=== PATIENT | male | born 1995 | race Caucasian/White ===

== ENCOUNTER 2017-12-31 12:46 | Inpatient (IN) | payer OTHER ==
[~2017-12-31] VITALS: Ht 167.6 cm; Wt 86.2 kg
[2017-12-31] MEDS ORDERED: CYCLOBENZAPRINE10 MG ORAL (12:55)
[2017-12-31] MEDS ORDERED: NEURONTIN300 MG ORAL (12:55)
[2017-12-31] MEDS ORDERED: Ketorolac 30mg Inj IV ONE (13:15)
[2017-12-31] MEDS ORDERED: Morphine Sulfate 4mg/ml Inj (IV USE ONLY) IVP ONE (13:15)
[2017-12-31 13:20] VITALS: BP 167/84
[2017-12-31 13:37] LABS: ANION GAP 10 mmol/L (5-15); BLOOD UREA NITROGEN 12 mg/dL (7-18); CALCIUM 9.5 MG/DL (8.5-10.1); CARBON DIOXIDE 28 MMOL/L (21-32); CHLORIDE 97 MMOL/L (98-107); CREATININE 0.8 MG/DL (0.55-1.30); POTASSIUM 4.7 MMOL/L (3.5-5.1); SODIUM 135 MMOL/L (136-145)
[2017-12-31 13:40] LABS: BASOPHILS % (AUTO) 1.1 % (0.0-2.0); EOSINOPHILS % (AUTO) 1.3 % (0.0-3.0); HEMATOCRIT 46.2 % (42.0-52.0); HEMOGLOBIN 15.6 G/DL (14.2-18.0); LYMPHOCYTES % (AUTO) 25.8 % (20.0-45.0); MEAN CORPUSCULAR VOLUME 82 FL (80-99); MONOCYTES % (AUTO) 6.3 % (1.0-10.0); NEUTROPHILS % (AUTO) 65.5 % (45.0-75.0); PLATELET COUNT 126 K/UL (150-450); RED BLOOD COUNT 5.64 M/UL (4.70-6.10); RED CELL DISTRIBUTION WIDTH 11.2 % (11.6-14.8)
[2017-12-31 13:49] LABS: ALANINE AMINOTRANSFERASE 138 U/L (12-78); ALBUMIN 4.1 G/DL (3.4-5.0); ALBUMIN/GLOBULIN RATIO 0.7 (1.0-2.7); ALKALINE PHOSPHATASE 101 U/L (46-116); ASPARTATE AMINO TRANSFERASE 78 U/L (15-37); BILIRUBIN,TOTAL 0.5 MG/DL (0.2-1.0)
[2017-12-31] MEDS ORDERED: HYDROmorphone 1mg/ml Carpuject IVP ONE (14:00)
--- NOTE | 2017-12-31 14:26 | Emergency Room Report ---
History of Present Illness General Chief Complaint: Pain Source: Patient Present Illness HPI 22-year-old male presents ED complaining of right knee pain and swelling. Started approximate 5 days ago. Denies any recent injury or fall. Febrile in triage. Knee is swollen, unable to flex or extend. Unable to bear weight. States history of IV drug use. Denies cough or sore throat. No other aggravating or relieving factors. Denies any other associated symptoms Allergies: Coded Allergies: NALOXONE (Verified Allergy, Unknown, 12/31/17) Patient History Past Medical History: none Past Surgical History: none Pertinent Family History: none Social History: Reports: drug use; Denies: smoking, alcohol use Immunizations: UTD Reviewed Nursing Documentation: PMH: Agreed; PSxH: Agreed Review of Systems All Other Systems: negative except mentioned in HPI Physical Exam Vital Signs Date Time Temp Pulse Resp B/P (MAP) Pulse Ox O2 Delivery O2 Flow Rate FiO2 12/31/17 12:49 101.1 150 26 167/84 97 Room Air 101.1 Sp02 EP Interpretation: reviewed, normal General Appearance: alert, GCS 15, non-toxic, moderate distress Head: normocephalic, atraumatic Eyes: bilateral eye normal inspection, bilateral eye PERRL ENT: hearing grossly normal, normal pharynx, no angioedema, normal voice Neck: full range of motion, supple/symm/no masses Respiratory: chest non-tender, lungs clear, normal breath sounds, speaking full sentences Cardiovascular #1: regular rate, rhythm, no edema Cardiovascular #2: 2+ carotid (R), 2+ carotid (L), 2+ radial (R), 2+ radial (L) , 2+ dorsalis pedis (R), 2+ dorsalis pedis (L) Gastrointestinal: normal bowel sounds, non tender, soft, non-distended, no guarding, no rebound Rectal: deferred Genitourinary: normal inspection, no CVA tenderness Musculoskeletal: back normal, gait/station normal, decreased range of motion, swelling - R knee Neurologic: alert, oriented x3, responsive, motor strength/tone normal, sensory intact, speech normal Psychiatric: judgement/insight normal, memory normal, mood/affect normal, no suicidal/homicidal ideation Reflexes: 3+ bicep (R), 3+ bicep (L), 3+ tricep (R), 3+ tricep (L), 3+ knee (R) , 3+ knee (L) Skin: warm/dry, well hydrated Lymphatic: no adenopathy Procedures Additional Procedure Procedure Narrative Patient placed in supine position. Padding placed underneath right knee to achieve adequate flexion. Consents signed. Knee is cleaned and prepped with Betadine. Using 18-gauge needle introduced into the parapatellar region laterally. I was able to withdraw cloudy/serosanguineous fluid. Multiple syringes were filled. Patient tolerated procedure without difficulty Medical Decision Making Diagnostic Impression: Primary Impression: Knee pain Qualified Codes: M25.561 - Pain in right knee Additional Impressions: IV drug user Sepsis Qualified Codes: A41.9 - Sepsis, unspecified organism ER Course Hospital Course 22-year-old female presents to ED with swelling, pain R knee with fever Differential diagnoses include: Cellulitis, septic joint, gout Clinical course Patient placed on stretcher. After initial history and physical I ordered labs , blood Cx, UA, IVFs, pain meds, xray R knee labs reviewed - leukocytosis, Hb/Hct stable, no electrolyte abnormalities, lactate > 4 XRay - effusion noted, no fx I performed a bedside arthrocentesis. Approximately 60 mL of cloudy/ serosanguineous fluid was withdrawn. Sent for cell count, cultures, crystal analysis Dr Soriano at bedside; agrees that septic joint needs to be ruled out. Waiting on cultures. Started on vancomycin. Possibility for washout Case discussed with Dr Diaz and he agreed to accept the patient to his service for further care and support Diagnosis - knee pain, IV drug user, sepsis Patient admitted to floor in serious condition Labs Test 12/31/17 13:18 12/31/17 13:26 12/31/17 14:11 White Blood Count 11.0 K/UL (4.8-10.8) Red Blood Count 5.64 M/UL (4.70-6.10) Hemoglobin 15.6 G/DL (14.2-18.0) Hematocrit 46.2 % (42.0-52.0) Mean Corpuscular Volume 82 FL (80-99) Mean Corpuscular Hemoglobin 27.6 PG (27.0-31.0) Mean Corpuscular Hemoglobin Concent 33.7 G/DL (32.0-36.0) Red Cell Distribution Width 11.2 % (11.6-14.8) Platelet Count 126 K/UL (150-450) Mean Platelet Volume 5.7 FL (6.5-10.1) Neutrophils (%) (Auto) 65.5 % (45.0-75.0) Lymphocytes (%) (Auto) 25.8 % (20.0-45.0) Monocytes (%) (Auto) 6.3 % (1.0-10.0) Eosinophils (%) (Auto) 1.3 % (0.0-3.0) Basophils (%) (Auto) 1.1 % (0.0-2.0) Sodium Level 135 MMOL/L (136-145) Potassium Level 4.7 MMOL/L (3.5-5.1) Chloride Level 97 MMOL/L (98-107) Carbon Dioxide Level 28 MMOL/L (21-32) Anion Gap 10 mmol/L (5-15) Blood Urea Nitrogen 12 mg/dL (7-18) Creatinine 0.8 MG/DL (0.55-1.30) Estimat Glomerular Filtration Rate > 60 mL/min (>60) Glucose Level 93 MG/DL (74-106) Calcium Level 9.5 MG/DL (8.5-10.1) Total Bilirubin 0.5 MG/DL (0.2-1.0) Aspartate Amino Transf (AST/SGOT) 78 U/L (15-37) Alanine Aminotransferase (ALT/SGPT) 138 U/L (12-78) Alkaline Phosphatase 101 U/L (46-116) Total Protein 9.6 G/DL (6.4-8.2) Albumin 4.1 G/DL (3.4-5.0) Globulin 5.5 g/dL Albumin/Globulin Ratio 0.7 (1.0-2.7) Lactic Acid Level 4.40 mmol/L (0.4-2.0) Other X-Ray Diagnostic Results Other X-Ray Diagnostic Results : X-Ray ordered: R knee # of Views/Limited Vs Complete: 3 View Indication: Pain EP Interpretation: Yes Interpretation: no dislocation, no fractures, other - fluid in joint Impression: Other - fluid in jonit Electronically Signed by: Electronically signed by Ino Medel MD Last Vital Signs Date Time Temp Pulse Resp B/P (MAP) Pulse Ox O2 Delivery O2 Flow Rate FiO2 9/28/18 13:53 101.1 12/31/17 12:49 150 26 167/84 97 Room Air Status: improved Disposition: ADMITTED INPATIENT Condition: Serious Referrals: NOT CHOSEN IPA/,REFERRING (PCP) Ino Medel MD Dec 31, 2017 14:26
[2017-12-31] MEDS ORDERED: NS 1000ml 2,600 ML IVLG ONE (14:30)
[2017-12-31] MEDS ORDERED: Vancomycin 1.5gm/D5W 250ml 250 ML IVPB ONE (14:30)
--- NOTE | 2017-12-31 14:35 | Diagnostic Imaging Report ---
Indication: Knee pain Technique: 3 views of the knee Comparison: None Findings: There is evidence of a suprapatellar effusion. No acute fractures. No dislocations. The joint spaces are preserved Impression: Joint effusion. No acute bony trauma
[2017-12-31] MEDS ORDERED: Morphine Sulfate 2mg/ml Inj IVP PRN (14:45)
[2017-12-31] MEDS ORDERED: Nitroglycerin Subl 0.4mg tab SL PRN (14:45)
[2017-12-31] MEDS ORDERED: Miralax 17gm pkt ORAL PRN (14:45)
[2017-12-31] MEDS ORDERED: Albuterol/Ipratropium 3ml neb HHN PRN (14:45)
[2017-12-31 15:43] VITALS: BP 130/84
[2017-12-31 17:35] VITALS: BP 127/79
[2017-12-31] MEDS: Cyclobenzaprine 10mg Tab ORAL SCH (17:49)
[2017-12-31 20:00] VITALS: BP 125/78
[2017-12-31] MEDS: Cefepime HCl 2 GM in D5W 110 ML IV SCH (20:42)
[2017-12-31] MEDS: HYDROmorphone 1mg/ml Carpuject IVP PRN (20:44)
[2017-12-31] MEDS: Heparin 5000 units/ml inj SUBQ SCH (21:00)
[2017-12-31] MEDS: Vancomycin 750mg/NS 250ml IVPB SCH (22:08)
[2017-12-31 23:23] VITALS: BP 121/81
[2018-01-01] MEDS ORDERED: Vancomycin 1 GM in D5W 275 ML IV SCH (00:30)
[2018-01-01] MEDS: HYDROmorphone 1mg/ml Carpuject IVP PRN ×5 (00:35→19:44)
--- NOTE | 2018-01-01 00:44 | Consultation ---
DATE OF CONSULTATION: 12/31/2017 ORTHOPEDIC CONSULTATION CONSULTING PHYSICIAN: Dg Wade M.D. REFERRING PHYSICIAN: ER doctor, Dr. Medel. REASON FOR CONSULTATION: Right knee pain. BRIEF HISTORY: The patient is a pleasant 22-year-old gentleman with history of IV abuse, the last abuse was yesterday. The patient states that he used various needles that are old. The patient states that he has had 2-week history of right knee pain which has been getting progressively worse. Over the past 2 days, it has gotten significantly worse to the point that his right knee is very, very swollen. He has not had been kind of bear weight on it. He has some fever up to 101. He has not had any other constitutional signs of infection. He states that he did a lot of walking and did some squatting and kneeling and started developing right knee pain as well. He is here for evaluation and treatment of right knee. PAST MEDICAL HISTORY: Significant for history of hepatitis C. PAST SURGICAL HISTORY: None. MEDICATIONS: He is not taking any, although he uses IV drugs. ALLERGIES: He is allergic to Narcan which gives him rashes. SOCIAL HISTORY: He does smoke. He does not drink excessively. He admits to IV drug abuse. REVIEW OF SYSTEMS: Noncontributory. PHYSICAL EXAMINATION: GENERAL: Today reveals a pleasant gentleman. ORTHOPEDIC: Examination of the right knee reveals that his right knee is swollen and is tender to palpation. There is a needle wound on the lateral side from the ER physician who aspirated the fluid. He has decreased range of motion. There is warmth. He has got pain diffusely over the right leg. There is no swelling on the right leg. There is no swelling on the ankle and thigh although there is significant swelling about the right knee. DIAGNOSTIC DATA: X-rays and MRIs, there was no fracture or subluxation noted. IMPRESSION: Right knee possible septic arthritis versus crystal arthropathy versus internal derangement in the patient with history of IV drug abuse. DISCUSSION: At this time, I had discussion with the patient and explained to him my findings. The ER physician has already aspirated 60 mL of fluid and this was sent to pathology for crystal, culture, sensitivity, Gram stain, cell count with differential. I talked to the patient regarding possible need for an arthroscopic washout. He understands the possible need to proceed with this procedure. Risks, benefits, complications were discussed with him. The risks of continued infection, bleeding, neurovascular complication, possibility of need for further surgery, possibility of need for repeat arthroscopy for even arthrotomy to completely wash the knee were discussed with him. In the meanwhile, we will start him on vancomycin for empiric coverage. All questions were answered. We will follow up on culture results. Dg Wade M.D. DR: Carmen JOB#: [id number] CC:
[2018-01-01 04:00] VITALS: BP 129/75
[2018-01-01] MEDS ORDERED: QUETIAPINE FUMA25 MG ORAL (05:34)
[2018-01-01 06:01] LABS: BASOPHILS % (AUTO) 0.4 % (0.0-2.0); EOSINOPHILS % (AUTO) 0.9 % (0.0-3.0); HEMATOCRIT 41.8 % (42.0-52.0); HEMOGLOBIN 13.9 G/DL (14.2-18.0); LYMPHOCYTES % (AUTO) 27.7 % (20.0-45.0); MEAN CORPUSCULAR VOLUME 82 FL (80-99); MONOCYTES % (AUTO) 12.9 % (1.0-10.0); NEUTROPHILS % (AUTO) 58.1 % (45.0-75.0); PLATELET COUNT 302 K/UL (150-450); RED BLOOD COUNT 5.07 M/UL (4.70-6.10); RED CELL DISTRIBUTION WIDTH 11.2 % (11.6-14.8)
[2018-01-01 06:04] LABS: ALANINE AMINOTRANSFERASE 85 U/L (12-78); ALBUMIN/GLOBULIN RATIO 0.7 (1.0-2.7); ALKALINE PHOSPHATASE 80 U/L (46-116); ANION GAP 4 mmol/L (5-15); ASPARTATE AMINO TRANSFERASE 30 U/L (15-37); BILIRUBIN,TOTAL 0.5 MG/DL (0.2-1.0); BLOOD UREA NITROGEN 12 mg/dL (7-18); CALCIUM 8.7 MG/DL (8.5-10.1); CARBON DIOXIDE 29 MMOL/L (21-32); CHLORIDE 105 MMOL/L (98-107); CREATININE 0.9 MG/DL (0.55-1.30); POTASSIUM 3.7 MMOL/L (3.5-5.1); SODIUM 138 MMOL/L (136-145)
[2018-01-01] MEDS: Vancomycin 750mg/NS 250ml IVPB SCH ×2 (06:30→13:40)
--- NOTE | 2018-01-01 07:14 | Orthopedic Progress Note ---
Orthopedic - Progress Note Subjective Additional Comments continued knee pain, but feeling better Objective Last 24 Hour Vital Signs Date Time Temp Pulse Resp B/P (MAP) Pulse Ox O2 Delivery O2 Flow Rate FiO2 01/01/18 04:00 99.0 94 129/75 (93) 99.0 01/01/18 00:45 98.8 98.8 12/31/17 23:53 98.8 12/31/17 23:23 100.7 97 121/81 (94) 100.7 12/31/17 23:23 100.7 12/31/17 21:00 Room Air 12/31/17 20:00 99.2 118 125/78 (94) 99.2 12/31/17 19:48 110 18 Room Air 21 12/31/17 18:19 100.8 12/31/17 17:49 100.8 12/31/17 17:35 100.8 120 20 127/79 (95) 100.8 12/31/17 16:56 100.8 12/31/17 16:26 100.9 12/31/17 16:23 100.9 12/31/17 15:47 101.1 26 134/77 97 Room Air 214.0 12/31/17 15:43 100.9 123 20 130/84 (99) 99 100.9 12/31/17 15:43 Room Air 12/31/17 13:53 101.1 12/31/17 13:35 101.1 12/31/17 13:34 101.1 12/31/17 13:20 101.1 26 167/84 97 Room Air 101.1 12/31/17 12:49 101.1 150 26 167/84 97 Room Air 101.1 Intake and Output 12/31/17 01/01/18 19:00 07:00 Intake Total 250 ml 932 ml Output Total 200 ml Balance 50 ml 932 ml Intake Oral 250 ml 600 ml IV Total 332 ml Output Urine Total 200 ml # Voids 1 4 Laboratory Tests Test 12/31/17 13:18 12/31/17 13:26 12/31/17 14:11 12/31/17 15:20 White Blood Count 11.0 K/UL (4.8-10.8) H Red Blood Count 5.64 M/UL (4.70-6.10) Hemoglobin 15.6 G/DL (14.2-18.0) Hematocrit 46.2 % (42.0-52.0) Mean Corpuscular Volume 82 FL (80-99) Mean Corpuscular Hemoglobin 27.6 PG (27.0-31.0) Mean Corpuscular Hemoglobin Concent 33.7 G/DL (32.0-36.0) Red Cell Distribution Width 11.2 % (11.6-14.8) L Platelet Count 126 K/UL (150-450) L Mean Platelet Volume 5.7 FL (6.5-10.1) L Neutrophils (%) (Auto) 65.5 % (45.0-75.0) Lymphocytes (%) (Auto) 25.8 % (20.0-45.0) Monocytes (%) (Auto) 6.3 % (1.0-10.0) Eosinophils (%) (Auto) 1.3 % (0.0-3.0) Basophils (%) (Auto) 1.1 % (0.0-2.0) Sodium Level 135 MMOL/L (136-145) L Potassium Level 4.7 MMOL/L (3.5-5.1) Chloride Level 97 MMOL/L (98-107) L Carbon Dioxide Level 28 MMOL/L (21-32) Anion Gap 10 mmol/L (5-15) Blood Urea Nitrogen 12 mg/dL (7-18) Creatinine 0.8 MG/DL (0.55-1.30) Estimat Glomerular Filtration Rate > 60 mL/min (>60) Glucose Level 93 MG/DL (74-106) Calcium Level 9.5 MG/DL (8.5-10.1) Total Bilirubin 0.5 MG/DL (0.2-1.0) Aspartate Amino Transf (AST/SGOT) 78 U/L (15-37) H Alanine Aminotransferase (ALT/SGPT) 138 U/L (12-78) H Alkaline Phosphatase 101 U/L (46-116) Total Protein 9.6 G/DL (6.4-8.2) H Albumin 4.1 G/DL (3.4-5.0) Globulin 5.5 g/dL Albumin/Globulin Ratio 0.7 (1.0-2.7) L Lactic Acid Level 4.40 mmol/L (0.4-2.0) H 1.80 mmol/L (0.66-2.22) Body Fluid Source Synovial Body Fluid Volume 8 mL Body Fluid Appearance Cloudy (Clear) Body Fluid RBC 1760 /CUMM Body Fluid Total Nucleated Cells 60024 /CUMM Body Fluid Polynuclear WBCs (%) 95 % Body Fluid Mononuclear WBCs (%) 5 % Body Fluid Mesothelial Cells (%) 0 % Body Fluid Glucose Pending Body Fluid Total Protein Pending Synovial Fluid Crystals Pending Test 01/01/18 05:05 White Blood Count 10.0 K/UL (4.8-10.8) Red Blood Count 5.07 M/UL (4.70-6.10) Hemoglobin 13.9 G/DL (14.2-18.0) L Hematocrit 41.8 % (42.0-52.0) L Mean Corpuscular Volume 82 FL (80-99) Mean Corpuscular Hemoglobin 27.4 PG (27.0-31.0) Mean Corpuscular Hemoglobin Concent 33.3 G/DL (32.0-36.0) Red Cell Distribution Width 11.2 % (11.6-14.8) L Platelet Count 302 K/UL (150-450) # Mean Platelet Volume 5.6 FL (6.5-10.1) L Neutrophils (%) (Auto) 58.1 % (45.0-75.0) Lymphocytes (%) (Auto) 27.7 % (20.0-45.0) Monocytes (%) (Auto) 12.9 % (1.0-10.0) H Eosinophils (%) (Auto) 0.9 % (0.0-3.0) Basophils (%) (Auto) 0.4 % (0.0-2.0) Sodium Level 138 MMOL/L (136-145) Potassium Level 3.7 MMOL/L (3.5-5.1) Chloride Level 105 MMOL/L (98-107) Carbon Dioxide Level 29 MMOL/L (21-32) Anion Gap 4 mmol/L (5-15) L Blood Urea Nitrogen 12 mg/dL (7-18) Creatinine 0.9 MG/DL (0.55-1.30) Estimat Glomerular Filtration Rate > 60 mL/min (>60) Glucose Level 115 MG/DL (74-106) H Calcium Level 8.7 MG/DL (8.5-10.1) Total Bilirubin 0.5 MG/DL (0.2-1.0) Aspartate Amino Transf (AST/SGOT) 30 U/L (15-37) Alanine Aminotransferase (ALT/SGPT) 85 U/L (12-78) H Alkaline Phosphatase 80 U/L (46-116) Total Protein 7.3 G/DL (6.4-8.2) Albumin 3.0 G/DL (3.4-5.0) L Globulin 4.3 g/dL Albumin/Globulin Ratio 0.7 (1.0-2.7) L Microbiology Date/Time Source Procedure Growth Status 12/31/17 14:11 Synovial Fluid Gram Stain - Final Resulted 12/31/17 14:11 Synovial Fluid Body Fluid Culture Pending Resulted Drains: none Neuro Status: normal Additional Comments Continued with limitation of range of motion Assessment Post-op Diagnosis Right knee inflammation Plan Additional Comments Continue to monitor labs and microbiology Gram stain negative knee fluid WBC 11k no major left shift on Blood work no need for surgical intervention at this time until cultures are back. Currently pending. Will monitor Add Celebrex 200mg bid Dg Wade MD Jan 01, 2018 07:14
[2018-01-01 08:00] VITALS: BP 127/87
[2018-01-01] MEDS: Cefepime HCl 2 GM in D5W 110 ML IV SCH ×2 (08:37→20:48)
[2018-01-01] MEDS: celeBREX 200mg Cap **SURGERY PATIENTS ONLY ORAL SCH ×2 (08:38→17:35)
[2018-01-01] MEDS: Cyclobenzaprine 10mg Tab ORAL SCH ×3 (08:38→17:35)
[2018-01-01] MEDS: Heparin 5000 units/ml inj SUBQ SCH ×2 (08:39→20:49)
[2018-01-01] MEDS ORDERED: Tubing IV Secondary IV ONE (10:58)
[2018-01-01] MEDS ORDERED: NS 500ML ONE (10:58)
[2018-01-01 11:18] VITALS: BP 122/82
--- NOTE | 2018-01-01 11:45 | Consultation ---
History of Present Illness General Date patient seen: Jan 01, 2018 Time patient seen: 11:00 Chief Complaint: Pain Referring physician: dr Diaz Reason for Consultation: in hospital managemetn Present Illness HPI 22-y/old male presented to ED complaining of right knee pain and swelling, started about 5 days ago. He denied any recent injury or falls. Patient reported history of IV drug abuse. Upon evaluation he was found to be febrile, tachycardic and tachypneic. Upon examination, found swollen right knee, Patient was unable to flex or extend it, Unable to bear weight. No chest pain, no SOB, no cough or sore throat. Lab work with leucocytosis, elevated LFT, elevated lactic acid X ray R knee with joint effusion. No acute bony trauma patient undergone aspiration of about 60 cc of r knee effusion and was subsequently admitted for further management currently afebrile, leucocytosis resolved Allergies: Coded Allergies: NALOXONE (Verified Allergy, Unknown, 12/31/17) Medication History Scheduled Cyclobenzaprine Hcl* (Flexeril*), 10 MG ORAL THREE TIMES A DAY, (Reported) Gabapentin (Neurontin), 600 MG ORAL THREE TIMES A DAY, (Reported) Quetiapine Fumarate* (Seroquel*), 50 MG ORAL TID, (Reported) Patient History History Provided By: Patient Healthcare decision maker Resuscitation status Full Code Advanced Directive on File No Past Medical/Surgical History Past Medical/Surgical History: (1) IV drug user Review of Systems Constitutional: Reports: weakness Eye: Reports: no symptoms ENT: Reports: no symptoms Respiratory: Reports: no symptoms Cardiovascular: Reports: no symptoms Gastrointestinal: Reports: no symptoms Genitourinary: Reports: no symptoms Musculoskeletal: Reports: see HPI Skin: Reports: no symptoms Psychiatric: Reports: no symptoms Neurological: Reports: no symptoms Endocrine: Reports: no symptoms Hematologic/Lymphatic: Reports: no symptoms Physical Exam General Appearance: WD/WN, no apparent distress, alert Lines, tubes and drains: peripheral HEENT: normocephalic, atraumatic, anicteric, mucous membranes moist Respiratory/Chest: lungs clear, no respiratory distress, no accessory muscle use Cardiovascular/Chest: normal rate, no JVD Abdomen: normal bowel sounds, non tender, soft Neurologic: alert, oriented x 3, responsive Musculoskeletal: other - R knee with edema, warmth, no erythema, decreased ROM Last 24 Hour Vital Signs Date Time Temp Pulse Resp B/P (MAP) Pulse Ox O2 Delivery O2 Flow Rate FiO2 01/01/18 11:18 98.9 79 21 122/82 (95) 98 98.9 01/01/18 09:14 100.7 01/01/18 08:51 99.7 01/01/18 08:38 99.7 01/01/18 08:15 91 18 Room Air 21 01/01/18 08:00 99.7 96 18 127/87 (100) 98 99.7 01/01/18 04:00 99.0 94 129/75 (93) 99.0 01/01/18 00:45 98.8 98.8 12/31/17 23:53 98.8 12/31/17 23:23 100.7 97 121/81 (94) 100.7 12/31/17 23:23 100.7 12/31/17 21:00 Room Air 12/31/17 20:00 99.2 118 125/78 (94) 99.2 12/31/17 19:48 110 18 Room Air 21 12/31/17 18:19 100.8 12/31/17 17:49 100.8 12/31/17 17:35 100.8 120 20 127/79 (95) 100.8 12/31/17 16:56 100.8 12/31/17 16:26 100.9 12/31/17 16:23 100.9 12/31/17 15:47 101.1 26 134/77 97 Room Air 214.0 12/31/17 15:43 100.9 123 20 130/84 (99) 99 100.9 12/31/17 15:43 Room Air 12/31/17 13:53 101.1 12/31/17 13:35 101.1 12/31/17 13:34 101.1 12/31/17 13:20 101.1 26 167/84 97 Room Air 101.1 12/31/17 12:49 101.1 150 26 167/84 97 Room Air 101.1 Intake and Output 12/31/17 01/01/18 19:00 07:00 Intake Total 250 ml 932 ml Output Total 200 ml Balance 50 ml 932 ml Intake Oral 250 ml 600 ml IV Total 332 ml Output Urine Total 200 ml # Voids 1 4 Laboratory Tests Test 12/31/17 13:18 12/31/17 13:26 12/31/17 14:11 12/31/17 15:20 White Blood Count 11.0 K/UL (4.8-10.8) H Red Blood Count 5.64 M/UL (4.70-6.10) Hemoglobin 15.6 G/DL (14.2-18.0) Hematocrit 46.2 % (42.0-52.0) Mean Corpuscular Volume 82 FL (80-99) Mean Corpuscular Hemoglobin 27.6 PG (27.0-31.0) Mean Corpuscular Hemoglobin Concent 33.7 G/DL (32.0-36.0) Red Cell Distribution Width 11.2 % (11.6-14.8) L Platelet Count 126 K/UL (150-450) L Mean Platelet Volume 5.7 FL (6.5-10.1) L Neutrophils (%) (Auto) 65.5 % (45.0-75.0) Lymphocytes (%) (Auto) 25.8 % (20.0-45.0) Monocytes (%) (Auto) 6.3 % (1.0-10.0) Eosinophils (%) (Auto) 1.3 % (0.0-3.0) Basophils (%) (Auto) 1.1 % (0.0-2.0) Sodium Level 135 MMOL/L (136-145) L Potassium Level 4.7 MMOL/L (3.5-5.1) Chloride Level 97 MMOL/L (98-107) L Carbon Dioxide Level 28 MMOL/L (21-32) Anion Gap 10 mmol/L (5-15) Blood Urea Nitrogen 12 mg/dL (7-18) Creatinine 0.8 MG/DL (0.55-1.30) Estimat Glomerular Filtration Rate > 60 mL/min (>60) Glucose Level 93 MG/DL (74-106) Calcium Level 9.5 MG/DL (8.5-10.1) Total Bilirubin 0.5 MG/DL (0.2-1.0) Aspartate Amino Transf (AST/SGOT) 78 U/L (15-37) H Alanine Aminotransferase (ALT/SGPT) 138 U/L (12-78) H Alkaline Phosphatase 101 U/L (46-116) Total Protein 9.6 G/DL (6.4-8.2) H Albumin 4.1 G/DL (3.4-5.0) Globulin 5.5 g/dL Albumin/Globulin Ratio 0.7 (1.0-2.7) L Lactic Acid Level 4.40 mmol/L (0.4-2.0) H 1.80 mmol/L (0.66-2.22) Body Fluid Source Synovial Body Fluid Volume 8 mL Body Fluid Appearance Cloudy (Clear) Body Fluid RBC 1760 /CUMM Body Fluid Total Nucleated Cells 81201 /CUMM Body Fluid Polynuclear WBCs (%) 95 % Body Fluid Mononuclear WBCs (%) 5 % Body Fluid Mesothelial Cells (%) 0 % Body Fluid Glucose 3 mg/dL (.) Body Fluid Total Protein 5.9 g/dL (.) Synovial Fluid Crystals Pending Test 01/01/18 05:05 White Blood Count 10.0 K/UL (4.8-10.8) Red Blood Count 5.07 M/UL (4.70-6.10) Hemoglobin 13.9 G/DL (14.2-18.0) L Hematocrit 41.8 % (42.0-52.0) L Mean Corpuscular Volume 82 FL (80-99) Mean Corpuscular Hemoglobin 27.4 PG (27.0-31.0) Mean Corpuscular Hemoglobin Concent 33.3 G/DL (32.0-36.0) Red Cell Distribution Width 11.2 % (11.6-14.8) L Platelet Count 302 K/UL (150-450) # Mean Platelet Volume 5.6 FL (6.5-10.1) L Neutrophils (%) (Auto) 58.1 % (45.0-75.0) Lymphocytes (%) (Auto) 27.7 % (20.0-45.0) Monocytes (%) (Auto) 12.9 % (1.0-10.0) H Eosinophils (%) (Auto) 0.9 % (0.0-3.0) Basophils (%) (Auto) 0.4 % (0.0-2.0) Sodium Level 138 MMOL/L (136-145) Potassium Level 3.7 MMOL/L (3.5-5.1) Chloride Level 105 MMOL/L (98-107) Carbon Dioxide Level 29 MMOL/L (21-32) Anion Gap 4 mmol/L (5-15) L Blood Urea Nitrogen 12 mg/dL (7-18) Creatinine 0.9 MG/DL (0.55-1.30) Estimat Glomerular Filtration Rate > 60 mL/min (>60) Glucose Level 115 MG/DL (74-106) H Calcium Level 8.7 MG/DL (8.5-10.1) Total Bilirubin 0.5 MG/DL (0.2-1.0) Aspartate Amino Transf (AST/SGOT) 30 U/L (15-37) Alanine Aminotransferase (ALT/SGPT) 85 U/L (12-78) H Alkaline Phosphatase 80 U/L (46-116) Total Protein 7.3 G/DL (6.4-8.2) Albumin 3.0 G/DL (3.4-5.0) L Globulin 4.3 g/dL Albumin/Globulin Ratio 0.7 (1.0-2.7) L Microbiology Date/Time Source Procedure Growth Status 12/31/17 14:11 Synovial Fluid Gram Stain - Final Resulted 12/31/17 14:11 Synovial Fluid Body Fluid Culture - Preliminary NO GROWTH Resulted Height (Feet): 5 Height (Inches): 6.00 Weight (Pounds): 190 Medications Current Medications Medications (Trade) Dose Ordered Sig/Maral Route PRN Reason Start Time Stop Time Status Last Admin Dose Admin Acetaminophen (Tylenol) 650 mg Q4H PRN ORAL fever 12/31/17 14:45 01/30/18 14:44 01/01/18 09:14 Albuterol/ Ipratropium (Albuterol/ Ipratropium) 3 ml Q4H PRN HHN Shortness of Breath 12/31/17 14:45 01/05/18 14:44 Cefepime HCl 2 gm/ Dextrose 110 ml @ 220 mls/hr EVERY 12 HOURS IV 12/31/17 21:00 01/07/18 20:59 01/01/18 08:37 Celecoxib (CeleBREX) 200 mg TWICE A DAY ORAL 01/01/18 09:00 01/31/18 08:59 01/01/18 08:38 Cyclobenzaprine HCl (Flexeril) 10 mg THREE TIMES A DAY ORAL 12/31/17 18:00 01/30/18 17:59 01/01/18 08:38 Dextrose (Dextrose 50%) 25 ml Q30M PRN IV Hypoglycemia 12/31/17 14:45 01/30/18 14:42 Dextrose (Dextrose 50%) 50 ml Q30M PRN IV hypoglycemia 12/31/17 14:45 01/30/18 14:44 Gabapentin (Neurontin) 600 mg THREE TIMES A DAY ORAL 12/31/17 18:00 01/30/18 17:59 01/01/18 08:38 Heparin Sodium (Porcine) (Heparin 5000 units/ml) 5,000 units EVERY 12 HOURS SUBQ 12/31/17 21:00 01/30/18 20:59 01/01/18 08:39 Hydromorphone HCl (Dilaudid) 1 mg Q3H PRN IVP For Pain 12/31/17 19:30 01/07/18 19:29 01/01/18 08:51 Nitroglycerin (Ntg) 0.4 mg Q5M PRN SL Prn Chest Pain 12/31/17 14:45 01/30/18 14:44 Ondansetron HCl (Zofran) 4 mg Q6H PRN IVP Nausea & Vomiting 12/31/17 14:45 01/30/18 14:44 Polyethylene Glycol (Miralax) 17 gm DAILYPRN PRN ORAL Constipation 12/31/17 14:45 01/30/18 14:44 Temazepam (Restoril) 15 mg HSPRN PRN ORAL Insomnia 12/31/17 14:45 01/07/18 14:44 12/31/17 22:07 Vancomycin/Sodium Chloride 250 ml @ 166.667 mls/hr Q8HR IVPB 12/31/17 22:00 01/05/18 21:59 01/01/18 06:30 Assessment/Plan Assessment/Plan ASSESSMENT sepsis possible septic arthritis vs crystal arthropathy vs internal derangement in the patient with history of IV drug abuse R knee effusion s/p aspiration of R knee effusion transaminitis IV drug abuse PLAN OF CARE MS floor s/p IVF abx synovial fluid cx preliminary negative ID consul pending pain maanegemtn prn ortho eval appreciated GS negative awaiting for final cx per ortho no need for surgical interventions at this time DVT prophylaxis bowel regimen venous Duplex BLE counseled on abstinence from street drugs PT/OT trend LFT, hepatitis panel case discussed and evaluated by supervising physician Nathalie Yuen NP Jan 01, 2018 11:45
--- NOTE | 2018-01-01 12:00 | History and Physical Report ---
DATE OF ADMISSION: 12/31/2017 TIME: 9 a.m. CONSULTANTS: 1. Dg Wade M.D. 2. Kevin Joseph M.D. 3. Matt Newton M.D. CHIEF COMPLAINT: Right septic knee and knee pain. BRIEF HISTORY: This is a 22-year-old male, who had right knee pain about a week, getting worse, slightly warm, came to [facility], diagnosed with the above, and admitted to medical floor for further treatment. Currently, slight general pain especially at the right knee. No complaint. REVIEW OF SYSTEMS: No chest pain. No shortness of breath. No nausea, vomiting, or diarrhea. PAST MEDICAL HISTORY: Nothing. PAST SURGICAL HISTORY: Nothing. MEDICATIONS: Include Celebrex, vancomycin, cefepime, hydromorphone, cyclobenzaprine, gabapentin, nitroglycerin, temazepam, Zofran, and Tylenol. ALLERGIES: Narcan. SOCIAL HISTORY: Positive smoke. Positive alcohol. Positive marijuana use. PHYSICAL EXAMINATION: GENERAL: Slightly anxious in bed, oriented x3, no acute distress. VITAL SIGNS: Temperature is 99, pulse 96, respirations 18, and blood pressure 127/87. CARDIOVASCULAR: No murmur. LUNGS: Distant and clear. ABDOMEN: Bowel sounds positive. Nontender. Nondistended. EXTREMITIES: No cyanosis, clubbing or edema. Right knee slightly swollen, slightly warm, no redness noted. NEUROLOGIC: The patient moves all extremities, slightly weak. LABORATORY AND DIAGNOSTIC DATA: Labs, at this time, show yesterday is 11, otherwise today CBC, hemoglobin is 13.9, otherwise CBC is normal. BMP shows glucose 112, ALT 85, albumin 3.0, otherwise normal. ASSESSMENT: Right septic knee, severe and right knee pain. PLAN: 1. Antibiotic per Infectious Disease. 2. Pain control. 3. Dietary followup. 4. CBC and BMP in the morning. Enmanuel Diaz D.O. DR: ESSENCE JOB#: [id number] CC:
--- NOTE | 2018-01-01 12:44 | Consultation ---
Consult Note Consult Note ID Dic # [id number] Kevin Joseph MD Jan 01, 2018 12:44
[2018-01-01 16:00] VITALS: BP 119/78
[2018-01-01 19:54] VITALS: BP 120/81
[2018-01-01] MEDS ORDERED: Vancomycin 1500mg IVPB SCH (22:30)
[2018-01-01 23:08] VITALS: BP 117/60
--- NOTE | 2018-01-01 23:30 | Consultation ---
DATE OF CONSULTATION: 01/01/2018 NOTE: Poor Audio. INFECTIOUS DISEASES CONSULTATION CONSULTING PHYSICIAN: Kevin Joseph M.D. REFERRING PHYSICIAN: Enmanuel Diaz D.O. REASON FOR CONSULTATION: Evaluation of the patient for probable septic arthritis, history of fever, and antibiotic management. HISTORY OF PRESENT ILLNESS: The patient is a 22-year-old male who was admitted to this hospital with chief complaint of right knee pain x5 days prior to the admission. The patient admits of having IV drug use despite of being in the rehabilitation facility for about six months. The patient denies having any sexual ____ except with his fiancee. Denies having any penile discharge. The patient swelling and tenderness of the right knee, later developed fever. The patient does not able to ambulate, came to the emergency room, was found to be febrile. Knee aspiration was done, there has been 50 mL of cloudy fluid that was sent to the laboratory. The patient has been started on IV antibiotics. Infectious Diseases consultation has been requested for further evaluation of the patient and antibiotic management. PAST MEDICAL HISTORY: Significant for: 1. Hepatitis C. 2. HIV test negative about a month ago. ALLERGIES: Naloxone. MEDICATIONS: IV vancomycin and cefepime. FAMILY HISTORY: Noncontributory. SOCIAL HISTORY: Significant for IV drug abuse and smoking tobacco. Denies of alcohol abuse. REVIEW OF SYSTEMS: A 10-point review was done, except what was mentioned above has been negative. PHYSICAL EXAMINATION: VITAL SIGNS: Temperature 98.3, pulse 86, respiratory rate 18, blood pressure 122/82. HEENT: No pale conjunctivae. No icterus. NECK: No lymphadenopathy. CHEST: Clear. HEART: S1 and S2. ABDOMEN: Soft. EXTREMITIES: Right knee swelling. Mild tenderness. NEUROLOGIC: Awake and alert. LABORATORY AND DIAGNOSTIC DATA: White blood cells 10, hemoglobin 13, platelet 302. Synovial fluid 11,000 white blood cells, 95% monocytes, , protein 5.9, BUN 12, creatinine 0.9. AST 30, ALT 85, alkaline phosphatase 18. Synovial fluid culture is pending. Blood culture is pending. X-ray of knee . ASSESSMENT: 1. Fever. 2. Right knee arthritis (suspicious for septic arthritis ____ total white blood cell count). 3. Rule out bacteremia. 4. Rule out gonorrhea (the patient denies of having relationship except with his fiancee). 5. Rule out probable endocarditis. PLAN: 1. We will continue the patient on vancomycin and cefepime. 2. Monitor CBC. 3. Monitor BMP. 4. Monitor cultures (synovial and blood). 5. 2D echo, rule out vegetation. 6. Synovial fluid for gonorrhea and DNA probe. 7. Urine for gonorrhea and DNA probe. 8. Synovial culture for gonorrhea. 9. Hepatitis panel (history of hepatitis C). 10. HIV screening. 11. Ortho followup. 12. Based on patient's current labs, we will do further recommendations. Thank you, Dr. Enmanuel Diaz, for this consultation. I will follow the patient with you. Kevin Joseph M.D. DR: Braydon JOB#: [id number] CC:
[2018-01-02 03:18] VITALS: BP 120/58
[2018-01-02] MEDS: HYDROmorphone 1mg/ml Carpuject IVP PRN ×5 (03:18→21:18)
[2018-01-02] MEDS: Vancomycin 1.5gm/D5W 250ml 250 ML IVPB SCH ×2 (05:33→13:20)
--- NOTE | 2018-01-02 07:59 | Pulmonology Progress Note ---
Assessment/Plan Assessment/Plan ASSESSMENT sepsis possible septic arthritis vs crystal arthropathy vs internal derangement in the patient with history of IV drug abuse R knee effusion s/p aspiration of R knee effusion transaminitis IV drug abuse hepatitis C PLAN OF CARE MS floor s/p IVF abx synovial fluid cx preliminary negative ID consul appreciated ECHO r/o endocarditis- with pEF, no evidence of vegetation HIV test negative pain maanegemtn prn ortho eval appreciated awaiting for final cx , prelim negative per ortho no need for surgical interventions at this time DVT prophylaxis bowel regimen venous Duplex BLE counseled on abstinence from street drugs PT/OT trend LFT, hepatitis panel , hx of hep C case discussed and evaluated by supervising physician Subjective Allergies: Coded Allergies: NALOXONE (Verified Allergy, Unknown, 12/31/17) Subjective afebrile this am, febrile yesterday, no leukocytosis culture prelim negative Objective Last 24 Hour Vital Signs Date Time Temp Pulse Resp B/P (MAP) Pulse Ox O2 Delivery O2 Flow Rate FiO2 01/02/18 03:18 97.6 72 18 120/58 (78) 98 97.6 01/01/18 23:08 97.6 78 18 117/60 (79) 97 97.6 01/01/18 21:00 Room Air 01/01/18 20:35 99.8 99.8 01/01/18 20:21 99.8 01/01/18 20:06 92 18 Room Air 21 01/01/18 19:54 100.9 90 17 120/81 (94) 95 100.9 01/01/18 19:51 100.9 01/01/18 17:35 98.6 01/01/18 16:00 98.6 75 18 119/78 (92) 95 98.6 01/01/18 15:58 98.6 01/01/18 15:58 98.6 01/01/18 15:28 98.9 01/01/18 13:41 98.9 01/01/18 11:18 98.9 79 21 122/82 (95) 98 98.9 01/01/18 09:14 100.7 01/01/18 09:00 Room Air 01/01/18 08:51 99.7 01/01/18 08:38 99.7 01/01/18 08:15 91 18 Room Air 21 01/01/18 08:00 99.7 96 18 127/87 (100) 98 99.7 Intake and Output 01/01/18 01/02/18 19:00 07:00 Intake Total 600 ml 300 ml Balance 600 ml 300 ml Intake Oral 600 ml 300 ml # Voids 3 2 Objective General Appearance: WD/WN, no apparent distress, alert Lines, tubes and drains: peripheral HEENT: normocephalic, atraumatic, anicteric, mucous membranes moist Respiratory/Chest: lungs clear, no respiratory distress, no accessory muscle use Cardiovascular/Chest: normal rate, no JVD Abdomen: normal bowel sounds, non tender, soft Neurologic: alert, oriented x 3, responsive Musculoskeletal: R knee with edema, warmth, no erythema, decreased ROM Microbiology Date/Time Source Procedure Growth Status 12/31/17 14:11 Synovial Fluid Gram Stain - Final Resulted 12/31/17 14:11 Synovial Fluid Body Fluid Culture - Preliminary NO GROWTH AFTER 48 HOURS Resulted Laboratory Tests 01/01/18 21:00: Vancomycin Level Trough 8.3 Current Medications Medications (Trade) Dose Ordered Sig/Maral Route PRN Reason Start Time Stop Time Status Last Admin Dose Admin Acetaminophen (Tylenol) 650 mg Q4H PRN ORAL fever 12/31/17 14:45 01/30/18 14:44 01/01/18 19:51 Albuterol/ Ipratropium (Albuterol/ Ipratropium) 3 ml Q4H PRN HHN Shortness of Breath 12/31/17 14:45 01/05/18 14:44 Cefepime HCl 2 gm/ Dextrose 110 ml @ 220 mls/hr EVERY 12 HOURS IV 12/31/17 21:00 01/07/18 20:59 01/01/18 20:48 Celecoxib (CeleBREX) 200 mg TWICE A DAY ORAL 01/01/18 09:00 01/31/18 08:59 01/01/18 17:35 Cyclobenzaprine HCl (Flexeril) 10 mg THREE TIMES A DAY ORAL 12/31/17 18:00 01/30/18 17:59 01/01/18 17:35 Dextrose (Dextrose 50%) 25 ml Q30M PRN IV Hypoglycemia 12/31/17 14:45 01/30/18 14:42 Dextrose (Dextrose 50%) 50 ml Q30M PRN IV hypoglycemia 12/31/17 14:45 01/30/18 14:44 Gabapentin (Neurontin) 600 mg THREE TIMES A DAY ORAL 12/31/17 18:00 01/30/18 17:59 01/01/18 17:34 Heparin Sodium (Porcine) (Heparin 5000 units/ml) 5,000 units EVERY 12 HOURS SUBQ 12/31/17 21:00 01/30/18 20:59 01/01/18 20:49 Hydromorphone HCl (Dilaudid) 1 mg Q3H PRN IVP For Pain 12/31/17 19:30 01/07/18 19:29 01/02/18 03:18 Nitroglycerin (Ntg) 0.4 mg Q5M PRN SL Prn Chest Pain 12/31/17 14:45 01/30/18 14:44 Ondansetron HCl (Zofran) 4 mg Q6H PRN IVP Nausea & Vomiting 12/31/17 14:45 01/30/18 14:44 Polyethylene Glycol (Miralax) 17 gm DAILYPRN PRN ORAL Constipation 12/31/17 14:45 01/30/18 14:44 Temazepam (Restoril) 15 mg HSPRN PRN ORAL Insomnia 12/31/17 14:45 01/07/18 14:44 12/31/17 22:07 Vancomycin HCl (Vanco rx to dose) 1 ea DAILY PRN MISC . 01/02/18 07:45 02/01/18 07:44 Vancomycin HCl/ Dextrose 250 ml @ 166.667 mls/hr Q8HR IVPB 01/02/18 06:00 01/06/18 22:29 01/02/18 05:33 Nathalie Yuen NP Jan 02, 2018 07:59
[2018-01-02 08:00] VITALS: BP 115/71
[2018-01-02 08:27] LABS: BASOPHILS % (AUTO) 0.6 % (0.0-2.0); EOSINOPHILS % (AUTO) 2.1 % (0.0-3.0); HEMATOCRIT 41.5 % (42.0-52.0); LYMPHOCYTES % (AUTO) 25.6 % (20.0-45.0); MEAN CORPUSCULAR VOLUME 83 FL (80-99); MONOCYTES % (AUTO) 8.4 % (1.0-10.0); NEUTROPHILS % (AUTO) 63.3 % (45.0-75.0); PLATELET COUNT 317 K/UL (150-450); RED CELL DISTRIBUTION WIDTH 11.4 % (11.6-14.8)
--- NOTE | 2018-01-02 08:51 | General Progress Note ---
Assessment/Plan Problem List: (1) Septic joint of right knee joint ICD Codes: M00.9 - Pyogenic arthritis, unspecified SNOMED: 00609851, [id number] (2) Sepsis ICD Codes: A41.9 - Sepsis, unspecified organism SNOMED: 99878390 Qualifiers: Qualified Codes: A41.9 - Sepsis, unspecified organism (3) Knee pain ICD Codes: M25.569 - Pain in unspecified knee SNOMED: 99847758 Qualifiers: Qualified Codes: M25.561 - Pain in right knee Status: unchanged Assessment/Plan ot pt diet abx pain control sx id f/u cbc bmp am Subjective Constitutional: Reports: weakness Allergies: Coded Allergies: NALOXONE (Verified Allergy, Unknown, 12/31/17) All Systems: reviewed and negative except above Subjective r knee pain Objective Last 24 Hour Vital Signs Date Time Temp Pulse Resp B/P (MAP) Pulse Ox O2 Delivery O2 Flow Rate FiO2 01/02/18 08:00 99.5 94 18 115/71 (86) 99 99.5 01/02/18 03:18 97.6 72 18 120/58 (78) 98 97.6 01/01/18 23:08 97.6 78 18 117/60 (79) 97 97.6 01/01/18 21:00 Room Air 01/01/18 20:35 99.8 99.8 01/01/18 20:21 99.8 01/01/18 20:06 92 18 Room Air 21 01/01/18 19:54 100.9 90 17 120/81 (94) 95 100.9 01/01/18 19:51 100.9 01/01/18 17:35 98.6 01/01/18 16:00 98.6 75 18 119/78 (92) 95 98.6 01/01/18 15:58 98.6 01/01/18 15:58 98.6 01/01/18 15:28 98.9 01/01/18 13:41 98.9 01/01/18 11:18 98.9 79 21 122/82 (95) 98 98.9 01/01/18 09:14 100.7 01/01/18 09:00 Room Air 01/01/18 08:51 99.7 Intake and Output 01/01/18 01/02/18 19:00 07:00 Intake Total 600 ml 300 ml Balance 600 ml 300 ml Intake Oral 600 ml 300 ml # Voids 3 2 Laboratory Tests 01/01/18 21:00: Vancomycin Level Trough 8.3 01/02/18 07:50: White Blood Count 10.0, Red Blood Count 5.00, Hemoglobin 14.0L, Hematocrit 41.5L , Mean Corpuscular Volume 83, Mean Corpuscular Hemoglobin 27.9, Mean Corpuscular Hemoglobin Concent 33.6, Red Cell Distribution Width 11.4L, Platelet Count 317, Mean Platelet Volume 5.7L, Neutrophils (%) (Auto) 63.3, Lymphocytes (%) (Auto) 25.6, Monocytes (%) (Auto) 8.4, Eosinophils (%) (Auto) 2.1, Basophils (%) (Auto) 0.6, Sodium Level [Pending], Potassium Level [Pending] , Chloride Level [Pending], Carbon Dioxide Level [Pending], Blood Urea Nitrogen [Pending], Creatinine [Pending], Estimat Glomerular Filtration Rate [Pending], Glucose Level [Pending], Calcium Level [Pending], Total Bilirubin [Pending], Aspartate Amino Transf (AST/SGOT) [Pending], Alanine Aminotransferase (ALT/SGPT ) [Pending], Alkaline Phosphatase [Pending], Total Protein [Pending], Albumin [ Pending], Globulin [Pending], Hepatitis A IgM Antibody [Pending], Hepatitis B Surface Antigen [Pending], Hepatitis B Core IgM Antibody [Pending], Hepatitis C Antibody [Pending] Height (Feet): 5 Height (Inches): 6.00 Weight (Pounds): 190 General Appearance: alert EENT: normal ENT inspection Neck: normal alignment Cardiovascular: normal peripheral pulses, normal rate, regular rhythm Respiratory/Chest: chest wall non-tender, lungs clear, normal breath sounds Abdomen: normal bowel sounds, non tender, soft Extremities: normal inspection Edema: no edema noted Arm (L), no edema noted Arm (R), no edema noted Leg (L), no edema noted Leg (R), no edema noted Pedal (L), no edema noted Pedal (R), no edema noted Generalized Neurologic: responsive, motor weakness Skin: normal pigmentation, warm/dry Objective r knee sl warm swollen Enmanuel Diazg DO Jan 02, 2018 08:51
[2018-01-02 08:54] LABS: ALANINE AMINOTRANSFERASE 90 U/L (12-78); ALBUMIN 3.1 G/DL (3.4-5.0); ALBUMIN/GLOBULIN RATIO 0.6 (1.0-2.7); ALKALINE PHOSPHATASE 87 U/L (46-116); ANION GAP 9 mmol/L (5-15); ASPARTATE AMINO TRANSFERASE 40 U/L (15-37); BILIRUBIN,TOTAL 0.5 MG/DL (0.2-1.0); BLOOD UREA NITROGEN 8 mg/dL (7-18); CALCIUM 9.2 MG/DL (8.5-10.1); CARBON DIOXIDE 27 MMOL/L (21-32); CHLORIDE 104 MMOL/L (98-107); CREATININE 0.9 MG/DL (0.55-1.30); POTASSIUM 3.7 MMOL/L (3.5-5.1); SODIUM 140 MMOL/L (136-145)
[2018-01-02] MEDS: Cyclobenzaprine 10mg Tab ORAL SCH ×3 (08:55→17:55)
[2018-01-02] MEDS: celeBREX 200mg Cap **SURGERY PATIENTS ONLY ORAL SCH ×2 (08:55→17:55)
[2018-01-02] MEDS: Heparin 5000 units/ml inj SUBQ SCH ×2 (08:57→20:06)
[2018-01-02] MEDS: Cefepime HCl 2 GM in D5W 110 ML IV SCH ×2 (09:39→20:07)
--- NOTE | 2018-01-02 10:27 | Orthopedic Progress Note ---
Orthopedic - Progress Note Subjective Additional Comments knee pain a little better. Able to flex and extend somewhat better but still painful. Objective Last 24 Hour Vital Signs Date Time Temp Pulse Resp B/P (MAP) Pulse Ox O2 Delivery O2 Flow Rate FiO2 01/02/18 09:25 88 18 Room Air 21 01/02/18 09:00 Room Air 01/02/18 08:00 99.5 94 18 115/71 (86) 99 99.5 01/02/18 03:18 97.6 72 18 120/58 (78) 98 97.6 01/01/18 23:08 97.6 78 18 117/60 (79) 97 97.6 01/01/18 21:00 Room Air 01/01/18 20:35 99.8 99.8 01/01/18 20:21 99.8 01/01/18 20:06 92 18 Room Air 21 01/01/18 19:54 100.9 90 17 120/81 (94) 95 100.9 01/01/18 19:51 100.9 01/01/18 17:35 98.6 01/01/18 16:00 98.6 75 18 119/78 (92) 95 98.6 01/01/18 15:58 98.6 01/01/18 15:58 98.6 01/01/18 15:28 98.9 01/01/18 13:41 98.9 01/01/18 11:18 98.9 79 21 122/82 (95) 98 98.9 Intake and Output 01/01/18 01/02/18 19:00 07:00 Intake Total 600 ml 300 ml Balance 600 ml 300 ml Intake Oral 600 ml 300 ml # Voids 3 2 Laboratory Tests Test 01/01/18 21:00 01/02/18 07:50 Vancomycin Level Trough 8.3 ug/mL (5.0-12.0) White Blood Count 10.0 K/UL (4.8-10.8) Red Blood Count 5.00 M/UL (4.70-6.10) Hemoglobin 14.0 G/DL (14.2-18.0) L Hematocrit 41.5 % (42.0-52.0) L Mean Corpuscular Volume 83 FL (80-99) Mean Corpuscular Hemoglobin 27.9 PG (27.0-31.0) Mean Corpuscular Hemoglobin Concent 33.6 G/DL (32.0-36.0) Red Cell Distribution Width 11.4 % (11.6-14.8) L Platelet Count 317 K/UL (150-450) Mean Platelet Volume 5.7 FL (6.5-10.1) L Neutrophils (%) (Auto) 63.3 % (45.0-75.0) Lymphocytes (%) (Auto) 25.6 % (20.0-45.0) Monocytes (%) (Auto) 8.4 % (1.0-10.0) Eosinophils (%) (Auto) 2.1 % (0.0-3.0) Basophils (%) (Auto) 0.6 % (0.0-2.0) Sodium Level 140 MMOL/L (136-145) Potassium Level 3.7 MMOL/L (3.5-5.1) Chloride Level 104 MMOL/L (98-107) Carbon Dioxide Level 27 MMOL/L (21-32) Anion Gap 9 mmol/L (5-15) Blood Urea Nitrogen 8 mg/dL (7-18) Creatinine 0.9 MG/DL (0.55-1.30) Estimat Glomerular Filtration Rate > 60 mL/min (>60) Glucose Level 108 MG/DL (74-106) H Calcium Level 9.2 MG/DL (8.5-10.1) Total Bilirubin 0.5 MG/DL (0.2-1.0) Aspartate Amino Transf (AST/SGOT) 40 U/L (15-37) H Alanine Aminotransferase (ALT/SGPT) 90 U/L (12-78) H Alkaline Phosphatase 87 U/L (46-116) Total Protein 8.4 G/DL (6.4-8.2) H Albumin 3.1 G/DL (3.4-5.0) L Globulin 5.3 g/dL Albumin/Globulin Ratio 0.6 (1.0-2.7) L Hepatitis A IgM Antibody Pending Hepatitis B Surface Antigen Pending Hepatitis B Core IgM Antibody Pending Hepatitis C Antibody Pending Additional Comments ROM 20-60 degrees. Knee warm to touch, but no erythema or exudation noted. no leg swelling\ No high grade fever (tmax of 100.9) Assessment Post-op Diagnosis Right knee inflammation Plan Additional Comments Continue monitoring until final culture results. Agree with Gonococcus cultures considering age and risk factors discuss with the patient and he understand agrees. At this time, considering low WBC in the fluid, no gram stain, and negative cultures for 48 hours and low WBC and no left shift, doubt septic arthritis with virulent organism. However monitor culture results. Appreciate ID input Thank you Dg Wade MD Jan 02, 2018 10:26
[2018-01-02 12:00] VITALS: BP 122/73
[2018-01-02 16:00] VITALS: BP 109/67
[2018-01-02] MEDS ORDERED: Bisacodyl EC 5mg tab ORAL PRN (19:15)
[2018-01-02 20:00] VITALS: BP 121/79
[2018-01-02] MEDS: Vancomycin 1250mg/D5W 250ml IVPB SCH (21:51)
[2018-01-03 04:00] VITALS: BP 106/69
[2018-01-03] MEDS: Vancomycin 1250mg/D5W 250ml IVPB SCH ×2 (05:00→13:09)
[2018-01-03] MEDS: HYDROmorphone 1mg/ml Carpuject IVP PRN ×3 (05:36→20:54)
--- NOTE | 2018-01-03 07:38 | Orthopedic Progress Note ---
Orthopedic - Progress Note Subjective Additional Comments Still pending crystals and final culture results Objective Last 24 Hour Vital Signs Date Time Temp Pulse Resp B/P (MAP) Pulse Ox O2 Delivery O2 Flow Rate FiO2 01/03/18 06:07 97.8 01/03/18 05:36 97.8 01/03/18 04:00 97.8 81 18 106/69 (81) 94 97.8 01/02/18 21:18 100.1 01/02/18 20:53 Room Air 01/02/18 20:51 100.1 01/02/18 20:07 100.1 01/02/18 20:00 100.1 81 18 121/79 (93) 96 100.1 01/02/18 19:02 78 18 Room Air 21 01/02/18 16:00 98.5 79 18 109/67 (81) 98 98.5 01/02/18 12:00 98.7 83 18 122/73 (89) 96 98.7 01/02/18 09:25 88 18 Room Air 21 01/02/18 09:00 Room Air 01/02/18 08:00 99.5 94 18 115/71 (86) 99 99.5 Intake and Output 01/02/18 01/03/18 18:59 06:59 Intake Total 1060 ml 1210.000 ml Balance 1060 ml 1210.000 ml Intake Oral 700 ml 600 ml IV Total 360 ml 610.000 ml # Voids 5 3 Laboratory Tests Test 01/02/18 07:50 01/02/18 20:50 White Blood Count 10.0 K/UL (4.8-10.8) Red Blood Count 5.00 M/UL (4.70-6.10) Hemoglobin 14.0 G/DL (14.2-18.0) L Hematocrit 41.5 % (42.0-52.0) L Mean Corpuscular Volume 83 FL (80-99) Mean Corpuscular Hemoglobin 27.9 PG (27.0-31.0) Mean Corpuscular Hemoglobin Concent 33.6 G/DL (32.0-36.0) Red Cell Distribution Width 11.4 % (11.6-14.8) L Platelet Count 317 K/UL (150-450) Mean Platelet Volume 5.7 FL (6.5-10.1) L Neutrophils (%) (Auto) 63.3 % (45.0-75.0) Lymphocytes (%) (Auto) 25.6 % (20.0-45.0) Monocytes (%) (Auto) 8.4 % (1.0-10.0) Eosinophils (%) (Auto) 2.1 % (0.0-3.0) Basophils (%) (Auto) 0.6 % (0.0-2.0) Sodium Level 140 MMOL/L (136-145) Potassium Level 3.7 MMOL/L (3.5-5.1) Chloride Level 104 MMOL/L (98-107) Carbon Dioxide Level 27 MMOL/L (21-32) Anion Gap 9 mmol/L (5-15) Blood Urea Nitrogen 8 mg/dL (7-18) Creatinine 0.9 MG/DL (0.55-1.30) Estimat Glomerular Filtration Rate > 60 mL/min (>60) Glucose Level 108 MG/DL (74-106) H Calcium Level 9.2 MG/DL (8.5-10.1) Total Bilirubin 0.5 MG/DL (0.2-1.0) Aspartate Amino Transf (AST/SGOT) 40 U/L (15-37) H Alanine Aminotransferase (ALT/SGPT) 90 U/L (12-78) H Alkaline Phosphatase 87 U/L (46-116) Total Protein 8.4 G/DL (6.4-8.2) H Albumin 3.1 G/DL (3.4-5.0) L Globulin 5.3 g/dL Albumin/Globulin Ratio 0.6 (1.0-2.7) L Hepatitis A IgM Antibody Pending Hepatitis B Surface Antigen Pending Hepatitis B Core IgM Antibody Pending Hepatitis C Antibody Pending Vancomycin Level Trough 20.4 ug/mL (5.0-12.0) H Additional Comments . exam unchanged. continue with some swelling Tm: 100.2 Assessment Post-op Diagnosis Right knee inflammation Plan Plan: PT Additional Comments Continue monitor final cultures MRI of the right knee today Dg Wade MD Jan 03, 2018 07:38
[2018-01-03 08:00] VITALS: BP 108/71
[2018-01-03] MEDS: celeBREX 200mg Cap **SURGERY PATIENTS ONLY ORAL SCH ×2 (08:53→17:42)
[2018-01-03] MEDS: Cyclobenzaprine 10mg Tab ORAL SCH ×3 (08:53→17:42)
[2018-01-03] MEDS: Cefepime HCl 2 GM in D5W 110 ML IV SCH (08:54)
[2018-01-03] MEDS: Heparin 5000 units/ml inj SUBQ SCH ×2 (08:55→21:03)
[2018-01-03 10:32] LABS: BASOPHILS % (AUTO) 0.4 % (0.0-2.0); EOSINOPHILS % (AUTO) 1.9 % (0.0-3.0); HEMOGLOBIN 14.1 G/DL (14.2-18.0); LYMPHOCYTES % (AUTO) 17.5 % (20.0-45.0); MEAN CORPUSCULAR VOLUME 83 FL (80-99); MONOCYTES % (AUTO) 8.1 % (1.0-10.0); NEUTROPHILS % (AUTO) 72.2 % (45.0-75.0); PLATELET COUNT 355 K/UL (150-450); RED BLOOD COUNT 4.96 M/UL (4.70-6.10); RED CELL DISTRIBUTION WIDTH 11.4 % (11.6-14.8); WHITE BLOOD COUNT 10.4 K/UL (4.8-10.8)
[2018-01-03 10:49] LABS: ANION GAP 9 mmol/L (5-15); BLOOD UREA NITROGEN 7 mg/dL (7-18); CALCIUM 9.4 MG/DL (8.5-10.1); CARBON DIOXIDE 29 MMOL/L (21-32); CHLORIDE 103 MMOL/L (98-107); CREATININE 0.8 MG/DL (0.55-1.30); POTASSIUM 4.2 MMOL/L (3.5-5.1); SODIUM 141 MMOL/L (136-145)
--- NOTE | 2018-01-03 11:24 | General Progress Note ---
Assessment/Plan Problem List: (1) Septic joint of right knee joint ICD Codes: M00.9 - Pyogenic arthritis, unspecified SNOMED: 61432406, [id number] (2) Sepsis ICD Codes: A41.9 - Sepsis, unspecified organism SNOMED: 59859088 Qualifiers: Qualified Codes: A41.9 - Sepsis, unspecified organism (3) Knee pain ICD Codes: M25.569 - Pain in unspecified knee SNOMED: 23784993 Qualifiers: Qualified Codes: M25.561 - Pain in right knee Status: stable, progressing Assessment/Plan ot pt diet abx pain control sx id f/u cbc bmp am dc plan if clear Subjective Constitutional: Reports: weakness Allergies: Coded Allergies: NALOXONE (Verified Allergy, Unknown, 12/31/17) All Systems: reviewed and negative except above Subjective r knee pain Objective Last 24 Hour Vital Signs Date Time Temp Pulse Resp B/P (MAP) Pulse Ox O2 Delivery O2 Flow Rate FiO2 01/03/18 08:53 97.8 01/03/18 06:07 97.8 01/03/18 05:36 97.8 01/03/18 04:00 97.8 81 18 106/69 (81) 94 97.8 01/02/18 21:18 100.1 01/02/18 20:53 Room Air 01/02/18 20:51 100.1 01/02/18 20:07 100.1 01/02/18 20:00 100.1 81 18 121/79 (93) 96 100.1 01/02/18 19:02 78 18 Room Air 21 01/02/18 16:00 98.5 79 18 109/67 (81) 98 98.5 01/02/18 12:00 98.7 83 18 122/73 (89) 96 98.7 Intake and Output 01/02/18 01/03/18 19:00 07:00 Intake Total 1060 ml 1210.000 ml Balance 1060 ml 1210.000 ml Intake Oral 700 ml 600 ml IV Total 360 ml 610.000 ml # Voids 5 3 Laboratory Tests 01/02/18 20:50: Vancomycin Level Trough 20.4H 01/03/18 10:15: White Blood Count 10.4, Red Blood Count 4.96, Hemoglobin 14.1L, Hematocrit 41.0L , Mean Corpuscular Volume 83, Mean Corpuscular Hemoglobin 28.5, Mean Corpuscular Hemoglobin Concent 34.5, Red Cell Distribution Width 11.4L, Platelet Count 355, Mean Platelet Volume 6.3L, Neutrophils (%) (Auto) 72.2, Lymphocytes (%) (Auto) 17.5L, Monocytes (%) (Auto) 8.1, Eosinophils (%) (Auto) 1.9, Basophils (%) (Auto) 0.4, Sodium Level 141, Potassium Level 4.2, Chloride Level 103, Carbon Dioxide Level 29, Anion Gap 9, Blood Urea Nitrogen 7, Creatinine 0.8, Estimat Glomerular Filtration Rate > 60, Glucose Level 75, Calcium Level 9.4 Height (Feet): 5 Height (Inches): 6.00 Weight (Pounds): 190 General Appearance: alert EENT: normal ENT inspection Neck: normal alignment Cardiovascular: normal peripheral pulses, normal rate, regular rhythm Respiratory/Chest: chest wall non-tender, lungs clear, normal breath sounds Abdomen: normal bowel sounds, non tender, soft Extremities: normal inspection Edema: no edema noted Arm (L), no edema noted Arm (R), no edema noted Leg (L), no edema noted Leg (R), no edema noted Pedal (L), no edema noted Pedal (R), no edema noted Generalized Neurologic: responsive, motor weakness Skin: normal pigmentation, warm/dry Objective r knee sl warm swollen Enmanuel Diaz DO Jan 03, 2018 11:24
[2018-01-03 12:00] VITALS: BP 112/66
--- NOTE | 2018-01-03 12:29 | Infectious Diseases Prog Note ---
Assessment/Plan Assessment/Plan ASSESSMENT: 1. Fever. 2. Right knee arthritis (suspicious for septic arthritis) -synovial fluid wbc 11k (N 95), gluc 3, no crystals; cx stain neg, cx NTD 3. Rule out bacteremia. -Bcx NTD 4. Rule out gonorrhea (the patient denies of having relationship except with his fiancee). 5. Rule out probable endocarditis. -2d Echo: no vegetations Mild leukocytosis, resolved Elevated LFTs, improving IVDA Hepatitis C. -hep panel p - HIV test negative about a month ago.; repeat HIV sc 01/01 neg Tobacco abuse PLAN: - We will continue the patient on vancomycin and cefepime #4 pending cultures - Monitor CBC/CMP -Monitor cultures (synovial and blood), Synovial fluid for gonorrhea and DNA probe. -f/u Urine for gonorrhea and DNA probe. - f.u Hepatitis panel (history of hepatitis C). -HIV VL, RPR, ESR, CRP -f/u MRI R knee -Ortho followup. Thank you, Dr. Enmanuel Diaz, for this consultation. I will follow the patient with you. Subjective Allergies: Coded Allergies: NALOXONE (Verified Allergy, Unknown, 12/31/17) Subjective Tm 100.1 no leukcoytosis Bcx and synovial fluid cx NTD MRI pending Objective Vital Signs Last 24 Hour Vital Signs Date Time Temp Pulse Resp B/P (MAP) Pulse Ox O2 Delivery O2 Flow Rate FiO2 01/03/18 08:53 97.8 01/03/18 06:07 97.8 01/03/18 05:36 97.8 01/03/18 04:00 97.8 81 18 106/69 (81) 94 97.8 01/02/18 21:18 100.1 01/02/18 20:53 Room Air 01/02/18 20:51 100.1 01/02/18 20:07 100.1 01/02/18 20:00 100.1 81 18 121/79 (93) 96 100.1 01/02/18 19:02 78 18 Room Air 21 01/02/18 16:00 98.5 79 18 109/67 (81) 98 98.5 Height (Feet): 5 Height (Inches): 6.00 Weight (Pounds): 190 Objective . HEENT: No pale conjunctivae. No icterus. NECK: No lymphadenopathy. CHEST: Clear. HEART: S1 and S2. ABDOMEN: Soft. EXTREMITIES: Right knee swelling. Mild tenderness. NEUROLOGIC: Awake and alert. Microbiology Date/Time Source Procedure Growth Status 12/31/17 13:40 Blood Blood Culture - Preliminary NO GROWTH AFTER 48 HOURS Resulted 12/31/17 13:30 Blood Blood Culture - Preliminary NO GROWTH AFTER 48 HOURS Resulted 12/31/17 14:11 Synovial Fluid Gram Stain - Final Resulted 12/31/17 14:11 Synovial Fluid Body Fluid Culture - Preliminary NO GROWTH AFTER 72 HOURS Resulted Laboratory Tests Test 01/02/18 20:50 01/03/18 10:15 Vancomycin Level Trough 20.4 ug/mL (5.0-12.0) H White Blood Count 10.4 K/UL (4.8-10.8) Red Blood Count 4.96 M/UL (4.70-6.10) Hemoglobin 14.1 G/DL (14.2-18.0) L Hematocrit 41.0 % (42.0-52.0) L Mean Corpuscular Volume 83 FL (80-99) Mean Corpuscular Hemoglobin 28.5 PG (27.0-31.0) Mean Corpuscular Hemoglobin Concent 34.5 G/DL (32.0-36.0) Red Cell Distribution Width 11.4 % (11.6-14.8) L Platelet Count 355 K/UL (150-450) Mean Platelet Volume 6.3 FL (6.5-10.1) L Neutrophils (%) (Auto) 72.2 % (45.0-75.0) Lymphocytes (%) (Auto) 17.5 % (20.0-45.0) L Monocytes (%) (Auto) 8.1 % (1.0-10.0) Eosinophils (%) (Auto) 1.9 % (0.0-3.0) Basophils (%) (Auto) 0.4 % (0.0-2.0) Sodium Level 141 MMOL/L (136-145) Potassium Level 4.2 MMOL/L (3.5-5.1) Chloride Level 103 MMOL/L (98-107) Carbon Dioxide Level 29 MMOL/L (21-32) Anion Gap 9 mmol/L (5-15) Blood Urea Nitrogen 7 mg/dL (7-18) Creatinine 0.8 MG/DL (0.55-1.30) Estimat Glomerular Filtration Rate > 60 mL/min (>60) Glucose Level 75 MG/DL (74-106) Calcium Level 9.4 MG/DL (8.5-10.1) Current Medications Medications (Trade) Dose Ordered Sig/Maral Route PRN Reason Start Time Stop Time Status Last Admin Dose Admin Acetaminophen (Tylenol) 650 mg Q4H PRN ORAL fever 12/31/17 14:45 01/30/18 14:44 01/02/18 20:07 Albuterol/ Ipratropium (Albuterol/ Ipratropium) 3 ml Q4H PRN HHN Shortness of Breath 12/31/17 14:45 01/05/18 14:44 Bisacodyl (Dulcolax) 5 mg DAILYPRN PRN ORAL Constipation 01/02/18 19:15 02/01/18 19:14 Cefepime HCl 2 gm/ Dextrose 110 ml @ 220 mls/hr EVERY 12 HOURS IV 12/31/17 21:00 01/07/18 20:59 01/03/18 08:54 Celecoxib (CeleBREX) 200 mg TWICE A DAY ORAL 01/01/18 09:00 01/31/18 08:59 01/03/18 08:53 Cyclobenzaprine HCl (Flexeril) 10 mg THREE TIMES A DAY ORAL 12/31/17 18:00 01/30/18 17:59 01/03/18 08:53 Dextrose (Dextrose 50%) 25 ml Q30M PRN IV Hypoglycemia 12/31/17 14:45 01/30/18 14:42 Dextrose (Dextrose 50%) 50 ml Q30M PRN IV hypoglycemia 12/31/17 14:45 01/30/18 14:44 Gabapentin (Neurontin) 600 mg THREE TIMES A DAY ORAL 01/02/18 13:00 02/01/18 12:59 01/03/18 08:53 Heparin Sodium (Porcine) (Heparin 5000 units/ml) 5,000 units EVERY 12 HOURS SUBQ 12/31/17 21:00 01/30/18 20:59 01/03/18 08:55 Hydromorphone HCl (Dilaudid) 1 mg Q3H PRN IVP For Pain 12/31/17 19:30 01/07/18 19:29 01/03/18 05:36 Nicotine (Nicoderm) 1 patch Q24H TDERMAL 01/02/18 21:30 02/01/18 21:29 01/02/18 21:51 Nitroglycerin (Ntg) 0.4 mg Q5M PRN SL Prn Chest Pain 12/31/17 14:45 01/30/18 14:44 Ondansetron HCl (Zofran) 4 mg Q6H PRN IVP Nausea & Vomiting 12/31/17 14:45 01/30/18 14:44 Polyethylene Glycol (Miralax) 17 gm DAILYPRN PRN ORAL Constipation 12/31/17 14:45 01/30/18 14:44 01/02/18 12:30 Temazepam (Restoril) 15 mg HSPRN PRN ORAL Insomnia 12/31/17 14:45 01/07/18 14:44 12/31/17 22:07 Vancomycin HCl (Vanco rx to dose) 1 ea DAILY PRN MISC . 01/02/18 07:45 02/01/18 07:44 Vancomycin HCl/ Dextrose 250 ml @ 166.667 mls/hr Q8HR IVPB 01/02/18 22:00 01/07/18 21:59 01/03/18 05:00 Rosmery Gray M.D. Jan 03, 2018 12:29
--- NOTE | 2018-01-03 12:38 | Pulmonology Progress Note ---
Assessment/Plan Problems: (1) Septic joint of right knee joint Assessment/Plan iv abx check cultures symptomatic treatment Subjective ROS Limited/Unobtainable: No Constitutional: Reports: no symptoms HEENT: Repors: no symptoms Respiratory: Reports: no symptoms Allergies: Coded Allergies: NALOXONE (Verified Allergy, Unknown, 12/31/17) Objective Last 24 Hour Vital Signs Date Time Temp Pulse Resp B/P (MAP) Pulse Ox O2 Delivery O2 Flow Rate FiO2 01/03/18 08:53 97.8 01/03/18 06:07 97.8 01/03/18 05:36 97.8 01/03/18 04:00 97.8 81 18 106/69 (81) 94 97.8 01/02/18 21:18 100.1 01/02/18 20:53 Room Air 01/02/18 20:51 100.1 01/02/18 20:07 100.1 01/02/18 20:00 100.1 81 18 121/79 (93) 96 100.1 01/02/18 19:02 78 18 Room Air 21 01/02/18 16:00 98.5 79 18 109/67 (81) 98 98.5 Intake and Output 01/02/18 01/03/18 19:00 07:00 Intake Total 1060 ml 1210.000 ml Balance 1060 ml 1210.000 ml Intake Oral 700 ml 600 ml IV Total 360 ml 610.000 ml # Voids 5 3 General Appearance: WD/WN HEENT: atraumatic, anicteric Respiratory/Chest: chest wall non-tender, lungs clear Cardiovascular: normal peripheral pulses, normal rate Abdomen: normal bowel sounds, soft, non tender Genitourinary: normal external genitalia 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 Lymphatic: no neck adenopathy Microbiology Date/Time Source Procedure Growth Status 12/31/17 13:40 Blood Blood Culture - Preliminary NO GROWTH AFTER 48 HOURS Resulted 12/31/17 13:30 Blood Blood Culture - Preliminary NO GROWTH AFTER 48 HOURS Resulted 12/31/17 14:11 Synovial Fluid Gram Stain - Final Resulted 12/31/17 14:11 Synovial Fluid Body Fluid Culture - Preliminary NO GROWTH AFTER 72 HOURS Resulted Laboratory Tests 01/02/18 20:50: Vancomycin Level Trough 20.4H 01/03/18 10:15: White Blood Count 10.4, Red Blood Count 4.96, Hemoglobin 14.1L, Hematocrit 41.0L , Mean Corpuscular Volume 83, Mean Corpuscular Hemoglobin 28.5, Mean Corpuscular Hemoglobin Concent 34.5, Red Cell Distribution Width 11.4L, Platelet Count 355, Mean Platelet Volume 6.3L, Neutrophils (%) (Auto) 72.2, Lymphocytes (%) (Auto) 17.5L, Monocytes (%) (Auto) 8.1, Eosinophils (%) (Auto) 1.9, Basophils (%) (Auto) 0.4, Sodium Level 141, Potassium Level 4.2, Chloride Level 103, Carbon Dioxide Level 29, Anion Gap 9, Blood Urea Nitrogen 7, Creatinine 0.8, Estimat Glomerular Filtration Rate > 60, Glucose Level 75, Calcium Level 9.4 Current Medications Medications (Trade) Dose Ordered Sig/Maral Route PRN Reason Start Time Stop Time Status Last Admin Dose Admin Acetaminophen (Tylenol) 650 mg Q4H PRN ORAL fever 12/31/17 14:45 01/30/18 14:44 01/02/18 20:07 Albuterol/ Ipratropium (Albuterol/ Ipratropium) 3 ml Q4H PRN HHN Shortness of Breath 12/31/17 14:45 01/05/18 14:44 Bisacodyl (Dulcolax) 5 mg DAILYPRN PRN ORAL Constipation 01/02/18 19:15 02/01/18 19:14 Cefepime HCl 2 gm/ Dextrose 110 ml @ 220 mls/hr EVERY 12 HOURS IV 12/31/17 21:00 01/07/18 20:59 01/03/18 08:54 Celecoxib (CeleBREX) 200 mg TWICE A DAY ORAL 01/01/18 09:00 01/31/18 08:59 01/03/18 08:53 Cyclobenzaprine HCl (Flexeril) 10 mg THREE TIMES A DAY ORAL 12/31/17 18:00 01/30/18 17:59 01/03/18 08:53 Dextrose (Dextrose 50%) 25 ml Q30M PRN IV Hypoglycemia 12/31/17 14:45 01/30/18 14:42 Dextrose (Dextrose 50%) 50 ml Q30M PRN IV hypoglycemia 12/31/17 14:45 01/30/18 14:44 Gabapentin (Neurontin) 600 mg THREE TIMES A DAY ORAL 01/02/18 13:00 02/01/18 12:59 01/03/18 08:53 Heparin Sodium (Porcine) (Heparin 5000 units/ml) 5,000 units EVERY 12 HOURS SUBQ 12/31/17 21:00 01/30/18 20:59 01/03/18 08:55 Hydromorphone HCl (Dilaudid) 1 mg Q3H PRN IVP For Pain 12/31/17 19:30 01/07/18 19:29 01/03/18 05:36 Nicotine (Nicoderm) 1 patch Q24H TDERMAL 01/02/18 21:30 02/01/18 21:29 01/02/18 21:51 Nitroglycerin (Ntg) 0.4 mg Q5M PRN SL Prn Chest Pain 12/31/17 14:45 01/30/18 14:44 Ondansetron HCl (Zofran) 4 mg Q6H PRN IVP Nausea & Vomiting 12/31/17 14:45 01/30/18 14:44 Polyethylene Glycol (Miralax) 17 gm DAILYPRN PRN ORAL Constipation 12/31/17 14:45 01/30/18 14:44 01/02/18 12:30 Temazepam (Restoril) 15 mg HSPRN PRN ORAL Insomnia 12/31/17 14:45 01/07/18 14:44 12/31/17 22:07 Vancomycin HCl (Vanco rx to dose) 1 ea DAILY PRN MISC . 01/02/18 07:45 02/01/18 07:44 Vancomycin HCl/ Dextrose 250 ml @ 166.667 mls/hr Q8HR IVPB 01/02/18 22:00 01/07/18 21:59 01/03/18 05:00 Matt Newton MD Jan 03, 2018 12:38
--- NOTE | 2018-01-03 15:10 | Diagnostic Imaging Report ---
APPROVED REPORT CPT Code: 49546 Present Symptoms Comments: BILATERAL LEGS PAIN. BILATERAL: Imaging reveals a patent deep venous system bilaterally. There is no evidence of thrombus within the femoral, popliteal or tibial segments. The greater saphenous veins are also within normal limits. Doppler indicates normal spontaneous flow within these segments.
[2018-01-03 16:00] VITALS: BP 123/74
[2018-01-03 18:47] LABS: CREATINE KINASE 21 U/L (26-308)
[2018-01-03 20:34] VITALS: BP 124/76
[2018-01-03] MEDS ORDERED: DAPTOmycin 500 MG in NS 55 ML IV SCH (21:00)
[2018-01-03] MEDS ORDERED: cefTRIAXone 2 GM in D5W 55 ML IVPB SCH (22:00)
[2018-01-04] VITALS: BP 127/72
[2018-01-04] MEDS: HYDROmorphone 1mg/ml Carpuject IVP PRN ×2 (03:00→07:53)
[2018-01-04 04:13] VITALS: BP 105/70
--- NOTE | 2018-01-04 07:40 | Orthopedic Progress Note ---
Orthopedic - Progress Note Subjective Additional Comments complain of less pain, able to move the knee better, Continued with swelling Objective Last 24 Hour Vital Signs Date Time Temp Pulse Resp B/P (MAP) Pulse Ox O2 Delivery O2 Flow Rate FiO2 01/04/18 04:13 99.0 64 18 105/70 (82) 94 99.0 01/04/18 00:00 98.9 69 16 127/72 (90) 97 98.9 01/03/18 21:00 Room Air 01/03/18 20:40 70 18 Room Air 21 01/03/18 20:34 99.5 72 18 124/76 (92) 97 99.5 01/03/18 17:42 97.8 01/03/18 16:34 97.8 01/03/18 16:34 97.8 01/03/18 16:04 97.8 01/03/18 16:00 98.8 72 18 123/74 (90) 98 98.8 01/03/18 13:09 97.8 01/03/18 12:00 98.4 69 18 112/66 (81) 100 98.4 01/03/18 09:00 Room Air 01/03/18 08:53 97.8 01/03/18 08:00 98.7 79 18 108/71 (83) 94 98.7 Intake and Output 01/03/18 01/04/18 19:00 07:00 Intake Total 800 ml 890 ml Balance 800 ml 890 ml Intake Oral 800 ml 780 ml IV Total 110 ml # Voids 4 3 Laboratory Tests Test 01/03/18 10:15 White Blood Count 10.4 K/UL (4.8-10.8) Red Blood Count 4.96 M/UL (4.70-6.10) Hemoglobin 14.1 G/DL (14.2-18.0) L Hematocrit 41.0 % (42.0-52.0) L Mean Corpuscular Volume 83 FL (80-99) Mean Corpuscular Hemoglobin 28.5 PG (27.0-31.0) Mean Corpuscular Hemoglobin Concent 34.5 G/DL (32.0-36.0) Red Cell Distribution Width 11.4 % (11.6-14.8) L Platelet Count 355 K/UL (150-450) Mean Platelet Volume 6.3 FL (6.5-10.1) L Neutrophils (%) (Auto) 72.2 % (45.0-75.0) Lymphocytes (%) (Auto) 17.5 % (20.0-45.0) L Monocytes (%) (Auto) 8.1 % (1.0-10.0) Eosinophils (%) (Auto) 1.9 % (0.0-3.0) Basophils (%) (Auto) 0.4 % (0.0-2.0) Sodium Level 141 MMOL/L (136-145) Potassium Level 4.2 MMOL/L (3.5-5.1) Chloride Level 103 MMOL/L (98-107) Carbon Dioxide Level 29 MMOL/L (21-32) Anion Gap 9 mmol/L (5-15) Blood Urea Nitrogen 7 mg/dL (7-18) Creatinine 0.8 MG/DL (0.55-1.30) Estimat Glomerular Filtration Rate > 60 mL/min (>60) Glucose Level 75 MG/DL (74-106) Calcium Level 9.4 MG/DL (8.5-10.1) Total Creatine Kinase 21 U/L (26-308) L Additional Comments pain decreased with ROM, ROM improved some. Able to walk around the room with crutches Final cultures negative Crystals negative Tm 99.5 MRI negative except for effusion Assessment Post-op Diagnosis Right knee inflammation Plan Plan: PT, pain management, discharge plan Additional Comments not planning on surgical intervention in view of negative cultures, no significant fever at this time, no significant leucocytosis and left shift. MRI negative for any abscess or other internal derangement No evidence of crystals in the fluid If clinical pictures improves, consider discharge with outpatient follow up Defer further care to primary care and ID. If clinical picture changes, will re-evaluate Dg Wade MD Jan 04, 2018 07:40
[2018-01-04] MEDS: Cyclobenzaprine 10mg Tab ORAL SCH ×2 (07:53→12:16)
[2018-01-04] MEDS: celeBREX 200mg Cap **SURGERY PATIENTS ONLY ORAL SCH (07:53)
[2018-01-04] MEDS: Heparin 5000 units/ml inj SUBQ SCH (07:58)
[2018-01-04 08:00] VITALS: BP 118/76
--- NOTE | 2018-01-04 11:59 | Infectious Diseases Prog Note ---
Assessment/Plan Assessment/Plan ASSESSMENT: 1. Low grade Fever. 2. Right knee arthritis (suspicious for septic arthritis given fever and hx IVDA and low glucose on synovial fluid) -synovial fluid wbc 11k (N 95), gluc 3, no crystals; cx stain neg, cx Neg -MRI R knee p -V. duplex no DVT 3. Rule out bacteremia. -Bcx NTD 4. Rule out gonorrhea (the patient denies of having relationship except with his fiancee). 5. Rule out probable endocarditis. -2d Echo: no vegetations Mild leukocytosis, resolved Elevated LFTs, improving IVDA Hepatitis C. - HIV test negative about a month ago.; repeat HIV sc 01/01 neg Tobacco abuse PLAN: -Given ongoing low grade fevers and IVDA- still suspicion of septic arthritis despite relative low WBC count in synovial fluid and neg cultures. -Continue IV Daptomycin 6mg/kg daily and Ceftriaxone 2g IV daily abx d #5 until 01/13/18 via PIV; after IV tx, will do 2 additional weeks with PO Abx ( Bactrim DS 2 tab bid and PO Cipro 750mg bid); Rx given -weekly CBC, CMP, CPK -01/03 SP vancomycin and cefepime #4 - Monitor CBC/CMP -Monitor cultures ( blood), Synovial fluid for gonorrhea and DNA probe ( not done in the hospital). -f/u Urine for gonorrhea and DNA probe. - f.u Hepatitis panel (history of hepatitis C), HIV VL, RPR, ESR, CRP -f/u MRI R knee -Ortho followup. Thank you, Dr. Enmanuel Diaz, for this consultation. I will follow the patient with you. Discussed with RN Subjective Allergies: Coded Allergies: NALOXONE (Verified Allergy, Unknown, 12/31/17) Subjective afebrile >24hrs no leukcoytosis Bcx NTD synovial fluid cx eg MRI pending pain improving Objective Vital Signs Last 24 Hour Vital Signs Date Time Temp Pulse Resp B/P (MAP) Pulse Ox O2 Delivery O2 Flow Rate FiO2 01/04/18 08:42 Room Air 01/04/18 08:23 98.7 01/04/18 08:23 98.7 01/04/18 08:00 98.7 68 19 118/76 (90) 96 98.7 01/04/18 07:53 99.0 01/04/18 07:53 99.0 01/04/18 04:13 99.0 64 18 105/70 (82) 94 99.0 01/04/18 00:00 98.9 69 16 127/72 (90) 97 98.9 01/03/18 21:00 Room Air 01/03/18 20:40 70 18 Room Air 21 01/03/18 20:34 99.5 72 18 124/76 (92) 97 99.5 01/03/18 17:42 97.8 01/03/18 16:04 97.8 01/03/18 16:00 98.8 72 18 123/74 (90) 98 98.8 01/03/18 13:09 97.8 01/03/18 12:00 98.4 69 18 112/66 (81) 100 98.4 Height (Feet): 5 Height (Inches): 6.00 Weight (Pounds): 190 Objective . HEENT: No pale conjunctivae. No icterus. NECK: No lymphadenopathy. CHEST: Clear. HEART: S1 and S2. ABDOMEN: Soft. EXTREMITIES: Right knee swelling. Mild tenderness. NEUROLOGIC: Awake and alert. Current Medications Medications (Trade) Dose Ordered Sig/Maral Route PRN Reason Start Time Stop Time Status Last Admin Dose Admin Acetaminophen (Tylenol) 650 mg Q4H PRN ORAL fever 12/31/17 14:45 01/30/18 14:44 01/02/18 20:07 Albuterol/ Ipratropium (Albuterol/ Ipratropium) 3 ml Q4H PRN HHN Shortness of Breath 12/31/17 14:45 01/05/18 14:44 Bisacodyl (Dulcolax) 5 mg DAILYPRN PRN ORAL Constipation 01/02/18 19:15 02/01/18 19:14 Ceftriaxone Sodium 2 gm/ Dextrose 55 ml @ 110 mls/hr Q24H IVPB 01/03/18 22:00 01/10/18 21:59 01/03/18 22:07 Celecoxib (CeleBREX) 200 mg TWICE A DAY ORAL 01/01/18 09:00 01/31/18 08:59 01/04/18 07:53 Cyclobenzaprine HCl (Flexeril) 10 mg THREE TIMES A DAY ORAL 12/31/17 18:00 01/30/18 17:59 01/04/18 07:53 Daptomycin 500 mg/ Sodium Chloride 55 ml @ 100 mls/hr Q24H IV 01/03/18 21:00 01/10/18 20:59 01/03/18 20:53 Dextrose (Dextrose 50%) 25 ml Q30M PRN IV Hypoglycemia 12/31/17 14:45 01/30/18 14:42 Dextrose (Dextrose 50%) 50 ml Q30M PRN IV hypoglycemia 12/31/17 14:45 01/30/18 14:44 Gabapentin (Neurontin) 600 mg THREE TIMES A DAY ORAL 01/02/18 13:00 02/01/18 12:59 01/04/18 07:53 Heparin Sodium (Porcine) (Heparin 5000 units/ml) 5,000 units EVERY 12 HOURS SUBQ 12/31/17 21:00 01/30/18 20:59 01/04/18 07:58 Hydromorphone HCl (Dilaudid) 1 mg Q3H PRN IVP For Pain 12/31/17 19:30 01/07/18 19:29 01/04/18 07:53 Nicotine (Nicoderm) 1 patch Q24H TDERMAL 01/02/18 21:30 02/01/18 21:29 01/03/18 20:54 Nitroglycerin (Ntg) 0.4 mg Q5M PRN SL Prn Chest Pain 12/31/17 14:45 01/30/18 14:44 Ondansetron HCl (Zofran) 4 mg Q6H PRN IVP Nausea & Vomiting 12/31/17 14:45 01/30/18 14:44 Polyethylene Glycol (Miralax) 17 gm DAILYPRN PRN ORAL Constipation 12/31/17 14:45 01/30/18 14:44 01/02/18 12:30 Temazepam (Restoril) 15 mg HSPRN PRN ORAL Insomnia 12/31/17 14:45 01/07/18 14:44 12/31/17 22:07 Rosmery Gray M.D. Jan 04, 2018 11:59
[2018-01-04 12:00] VITALS: BP 112/74
--- NOTE | 2018-01-04 13:43 | Pulmonology Progress Note ---
Assessment/Plan Problems: (1) Septic joint of right knee joint Assessment/Plan ready to go home iv abx until january 13 check cultures symptomatic treatment Subjective ROS Limited/Unobtainable: No Constitutional: Reports: no symptoms HEENT: Repors: no symptoms Allergies: Coded Allergies: NALOXONE (Verified Allergy, Unknown, 12/31/17) Objective Last 24 Hour Vital Signs Date Time Temp Pulse Resp B/P (MAP) Pulse Ox O2 Delivery O2 Flow Rate FiO2 01/04/18 12:46 98.7 01/04/18 12:16 98.7 01/04/18 12:00 98.9 62 19 112/74 (87) 96 98.9 01/04/18 08:42 Room Air 01/04/18 08:23 98.7 01/04/18 08:06 76 18 Room Air 21 01/04/18 08:00 98.7 68 19 118/76 (90) 96 98.7 01/04/18 07:53 99.0 01/04/18 07:53 99.0 01/04/18 04:13 99.0 64 18 105/70 (82) 94 99.0 01/04/18 00:00 98.9 69 16 127/72 (90) 97 98.9 01/03/18 21:00 Room Air 01/03/18 20:40 70 18 Room Air 21 01/03/18 20:34 99.5 72 18 124/76 (92) 97 99.5 01/03/18 17:42 97.8 01/03/18 16:04 97.8 01/03/18 16:00 98.8 72 18 123/74 (90) 98 98.8 Intake and Output 01/03/18 01/04/18 19:00 07:00 Intake Total 800 ml 890 ml Balance 800 ml 890 ml Intake Oral 800 ml 780 ml IV Total 110 ml # Voids 4 3 General Appearance: WD/WN HEENT: normocephalic, atraumatic Respiratory/Chest: chest wall non-tender, lungs clear Cardiovascular: normal peripheral pulses, regular rhythm Abdomen: normal bowel sounds, soft, non tender Extremities: no cyanosis Skin: no rash 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 Current Medications Medications (Trade) Dose Ordered Sig/Maral Route PRN Reason Start Time Stop Time Status Last Admin Dose Admin Acetaminophen (Tylenol) 650 mg Q4H PRN ORAL fever 12/31/17 14:45 01/30/18 14:44 01/02/18 20:07 Albuterol/ Ipratropium (Albuterol/ Ipratropium) 3 ml Q4H PRN HHN Shortness of Breath 12/31/17 14:45 01/05/18 14:44 Bisacodyl (Dulcolax) 5 mg DAILYPRN PRN ORAL Constipation 01/02/18 19:15 02/01/18 19:14 Ceftriaxone Sodium 2 gm/ Dextrose 55 ml @ 110 mls/hr Q24H IVPB 01/03/18 22:00 01/10/18 21:59 01/03/18 22:07 Celecoxib (CeleBREX) 200 mg TWICE A DAY ORAL 01/01/18 09:00 01/31/18 08:59 01/04/18 07:53 Cyclobenzaprine HCl (Flexeril) 10 mg THREE TIMES A DAY ORAL 12/31/17 18:00 01/30/18 17:59 01/04/18 12:16 Daptomycin 500 mg/ Sodium Chloride 55 ml @ 100 mls/hr Q24H IV 01/03/18 21:00 01/10/18 20:59 01/03/18 20:53 Dextrose (Dextrose 50%) 25 ml Q30M PRN IV Hypoglycemia 12/31/17 14:45 01/30/18 14:42 Dextrose (Dextrose 50%) 50 ml Q30M PRN IV hypoglycemia 12/31/17 14:45 01/30/18 14:44 Gabapentin (Neurontin) 600 mg THREE TIMES A DAY ORAL 01/02/18 13:00 02/01/18 12:59 01/04/18 12:17 Heparin Sodium (Porcine) (Heparin 5000 units/ml) 5,000 units EVERY 12 HOURS SUBQ 12/31/17 21:00 01/30/18 20:59 01/04/18 07:58 Hydromorphone HCl (Dilaudid) 1 mg Q3H PRN IVP For Pain 12/31/17 19:30 01/07/18 19:29 01/04/18 07:53 Nicotine (Nicoderm) 1 patch Q24H TDERMAL 01/02/18 21:30 02/01/18 21:29 01/03/18 20:54 Nitroglycerin (Ntg) 0.4 mg Q5M PRN SL Prn Chest Pain 12/31/17 14:45 01/30/18 14:44 Ondansetron HCl (Zofran) 4 mg Q6H PRN IVP Nausea & Vomiting 12/31/17 14:45 01/30/18 14:44 Polyethylene Glycol (Miralax) 17 gm DAILYPRN PRN ORAL Constipation 12/31/17 14:45 01/30/18 14:44 01/02/18 12:30 Temazepam (Restoril) 15 mg HSPRN PRN ORAL Insomnia 12/31/17 14:45 01/07/18 14:44 12/31/17 22:07 Matt Newton MD Jan 04, 2018 13:43
--- NOTE | 2018-01-04 14:10 | General Progress Note ---
Assessment/Plan Problem List: (1) Septic joint of right knee joint ICD Codes: M00.9 - Pyogenic arthritis, unspecified SNOMED: 16504244, [id number] (2) Sepsis ICD Codes: A41.9 - Sepsis, unspecified organism SNOMED: 66548194 Qualifiers: Qualified Codes: A41.9 - Sepsis, unspecified organism (3) Knee pain ICD Codes: M25.569 - Pain in unspecified knee SNOMED: 68187853 Qualifiers: Qualified Codes: M25.561 - Pain in right knee Status: stable, progressing Assessment/Plan ot pt diet abx pain control sx id f/u cbc bmp am dc plan w hh if clear Subjective Constitutional: Reports: weakness Allergies: Coded Allergies: NALOXONE (Verified Allergy, Unknown, 12/31/17) All Systems: reviewed and negative except above Subjective r knee pain Objective Last 24 Hour Vital Signs Date Time Temp Pulse Resp B/P (MAP) Pulse Ox O2 Delivery O2 Flow Rate FiO2 01/04/18 12:46 98.7 01/04/18 12:16 98.7 01/04/18 12:00 98.9 62 19 112/74 (87) 96 98.9 01/04/18 08:42 Room Air 01/04/18 08:23 98.7 01/04/18 08:06 76 18 Room Air 21 01/04/18 08:00 98.7 68 19 118/76 (90) 96 98.7 01/04/18 07:53 99.0 01/04/18 07:53 99.0 01/04/18 04:13 99.0 64 18 105/70 (82) 94 99.0 01/04/18 00:00 98.9 69 16 127/72 (90) 97 98.9 01/03/18 21:00 Room Air 01/03/18 20:40 70 18 Room Air 21 01/03/18 20:34 99.5 72 18 124/76 (92) 97 99.5 01/03/18 17:42 97.8 01/03/18 16:04 97.8 01/03/18 16:00 98.8 72 18 123/74 (90) 98 98.8 Intake and Output 01/03/18 01/04/18 19:00 07:00 Intake Total 800 ml 890 ml Balance 800 ml 890 ml Intake Oral 800 ml 780 ml IV Total 110 ml # Voids 4 3 Height (Feet): 5 Height (Inches): 6.00 Weight (Pounds): 190 General Appearance: alert EENT: normal ENT inspection Neck: normal alignment Cardiovascular: normal peripheral pulses, normal rate, regular rhythm Respiratory/Chest: chest wall non-tender, lungs clear, normal breath sounds Abdomen: normal bowel sounds, non tender, soft Extremities: normal inspection Edema: no edema noted Arm (L), no edema noted Arm (R), no edema noted Leg (L), no edema noted Leg (R), no edema noted Pedal (L), no edema noted Pedal (R), no edema noted Generalized Neurologic: responsive, motor weakness Skin: normal pigmentation, warm/dry Objective r knee sl warm swollen Enmanuel Diaz DO Jan 04, 2018 14:10
--- NOTE | 2018-01-04 17:41 | Cardiology Report ---
APPROVED REPORT EXAM: Two-dimensional and M-mode echocardiogram with Doppler and color Doppler. INDICATION ENDOCARDITIS M-Mode DIMENSIONS IVSd0.7 (0.7-1.1cm)Left Atrium (MM)2.8 (1.6-4.0cm) LVDd5.8 (3.5-5.6cm)Aortic Root3.7 (2.0-3.7cm) PWd1.3 (0.7-1.1cm)Aortic Cusp Exc.1.8 (1.5-2.0cm) IVSs1.5 cm LVDs3.8 (2.5-4.0cm) PWs2.0 cm Normal left ventricular chamber size, systolic function and wall motion . Left ventricular ejection fraction estimated to be 65-70 %. No evidence of left ventricular hypertrophy. No evidence of pericardial effusion.. All other cardiac chamber sizes are within normal limits. Focal aortic valve sclerosis with adequate cusp excursion. Thickened mitral valve leaflets with normal excursion. Mitral annulus and aortic root calcification. Pulmonic valve not well visualized. Normal tricuspid valve structure. IVC at size 2.0 cm normal size with physiologic collapse. A color flow and spectral Doppler study was performed and revealed: No aortic regurgitation. Trace mitral regurgitation. Normal left ventricular diastolic function. Mild tricuspid regurgitation. Tricuspid systolic velocities suggests peak right ventricular systolic pressure of 29 mmHg Trace Pulmonic regurgitation present.
--- NOTE | 2018-01-05 11:25 | Discharge Summary ---
Discharge Summary Discharge Summary _ DATE OF ADMISSION: 12/31/2017 DATE OF DISCHARGE: 01/04/2018 REASON FOR ADMISSION: 22 years old male with history of hepatitis C, IV drug abuse, presented to emergency department with right knee pain and swelling, started about 5 days ago. Patient denied fall or injury to the right knee. Patient reported history of IV drug abuse. Upon evaluation patient was found to be febrile, tachycardic ,tachypneic. Patient was unable to flex or extend the knee or bear weight. He denied cough or sore throat ; no chest pain or shortness of breath. Laboratory workup revealed leukocytosis, elevated LFT, elevated lactic acid. X-ray revealed right knee joint effusion. No acute bony trauma. Patient undergone arthrocentesis of right knee effusion with aspiration of about 60 mL of cloudy serosanguineous drainage, which was o sent for cell count , crystal analysis and culture. Patient subsequently was admitted for further management with diagnoses of sepsis , possible septic arthritis versus crystal arthropathy versus internal derangement, right knee effusion, status post arthrocentesis of right knee effusion, transaminitis, IV drug abuse. CONSULTANTS: pulmonary Dr. Newton ID specialist Dr. Joseph ortho surgery [facility] COURSE: Patient admitted to medical surgical floor and started on empiric antibiotics. Patient initially was given IV fluids. ID consult and ortho surgery consults requested. Echocardiogram revealed preserved ejection fraction of 65-70% and right ventricular systolic pressure of 29, no evidence of vegetation . Pain management was addressed as needed, and pain was controlled. Venous duplex bilateral lower extremity was negative. Bowel regimen instituted. MRI of right knee revealed no evidence of internal derangement or abscess. Synovial fluid analysis revealed no evidence of crystals. Per surgeon no need for surgical intervention at this time given negative MRI right knee, negative cultures, no leukocytosis. Blood culture were negative. Synovial fluid culture was negative. Infectious disease specialist closely followed. Due to ongoing intermittent low grade fever and history of IV drug abuse, clinical picture was still suspicious of septic arthritis as per ID specialist, despite no leukocytosis and negative culture. ID specialist recommended continue daptomycin and ceftriaxone till January 13 via peripheral IV access , after that patient will need 2 additional weeks of oral antibiotic Bactrim and Cipro ; prescription provided by ID specialist. Patient was working with physical therapist. Fall precautions maintained . Patient was able to ambulate with crutches. LFT were closely monitored , trending down . Hepatitis panel revealed evidence of hepatitis C infection ( known prior). HIV test was negative . Urine for gonorrhea and DNA probe for Gonorrhea and Chlamydia pending. Patient was counseled on abstinence from the street drugs. Patient was stable for discharge home with home health services for IV antibiotics. FINAL DIAGNOSES: Sepsis Probable septic arthritis ( given IV drug abuse history, leukocytosis and persistent low grade fevers) IV drug abuse Right knee effusion Status post arthrocentesis Transaminitis History of hepatitis C DISCHARGE MEDICATIONS: See Medication Reconciliation list. DISCHARGE INSTRUCTIONS: Patient was discharged home with home health services for IV antibiotics Follow up with primary care provider in one week. I have been assigned to dictate discharge summary for this account. I was not involved in the patient's management. Nathalie Yuen NP Jan 05, 2018 11:25
--- NOTE | 2018-01-06 09:03 | Diagnostic Imaging Report ---
Indication: Knee swelling and pain Technique: MRI of the right knee was imaged in a 1.5 Alanna magnet. Pulse sequences obtained include coronal T1 fast spin-echo, STIR, sagittal coronal and axial proton fast spin-echo with fat saturation, sagittal proton fast spin-echo. Comparison: None Findings: There is a large joint effusion present. The nature of the effusion is not known. There is also subcutaneous edema about the knee. A small amount of fluid also noted in the prepatellar bursa. Bone marrow signal is normal. The menisci, anterior and posterior cruciate ligaments appear normal. Medial collateral ligament complex is unremarkable. The lateral collateral ligament complex is normal. Iliotibial band, fibular collateral ligament, biceps femoris tendon and popliteus tendons appear unremarkable. There is no popliteal cyst. Articular cartilage is well preserved throughout the knee. IMPRESSION: Large joint effusion. Subcutaneous edema noted. Negative examination otherwise.
== END 2018-01-04 15:01 | disposition home health service (06) | DRG 872 ==
LOC: EMR 13:51 → EDBEDREQ 14:20 → 3E 14:22 → EDBEDREQ 14:28
PROC: 0S9C3ZZ Drainage of Right Knee Joint, Percutaneous Approach (ICD-10-PCS; principal; 2017-12-31)
DX: A41.9 Sepsis, unspecified organism (principal); M00.861 Arthritis due to other bacteria, right knee; F19.10 Other psychoactive substance abuse, uncomplicated; M25.461 Effusion, right knee; R74.0 Nonspecific elevation of levels of transaminase and lactic acid dehydrogenase [LDH]; Z86.19 Personal history of other infectious and parasitic diseases; F17.200 Nicotine dependence, unspecified, uncomplicated; Z88.8 Allergy status to other drugs, medicaments and biological substances
CPT/HCPCS: 36415; 80048; 80053; 80202; 82550; 83605; 85025; 86703; 86705; 86709; 86803; 87040; 87070; 87205; 87340; 89051; 89060; 93306; 93970; 94664; 96361; 96374; 96375; 99285